=== PATIENT | male | born 1955 | race Two or more races ===

== ENCOUNTER 2019-12-16 09:35 | Outpatient (REF) | payer MEDICARE, SELFPAY ==
--- NOTE | 2019-12-16 09:44 | US_ITS ---
EXAMINATION: US ABDOMEN COMPLETE CLINICAL INFORMATION: Elevated LFTs. COMPARISON: CT abdomen and pelvis 05/02/2017, ultrasound abdomen 03/27/2007 TECHNIQUE: Real-time imaging of the abdominal viscera. FINDINGS: PANCREAS: Portions of the pancreatic head and neck and proximal body are visualized and appear normal in size and echogenicity. There is no pancreatic ductal distention. The remainder of the pancreas is obscured by bowel gas and not imaged. ABDOMINAL AORTA: The proximal, mid, and distal segments are normal in caliber. INFERIOR VENA CAVA: Visualized portions are normal. LIVER: The liver is normal in size and smooth in contour. Hepatic parenchymal echogenicity is borderline increased. There is no focal hepatic parenchymal lesion or intrahepatic ductal dilatation.. No intrahepatic biliary ductal dilatation. GALLBLADDER: Normal. The gallbladder is physiologically distended without evidence of stones, sludge, polyps, wall thickening or pericholecystic fluid. COMMON BILE DUCT: Normal in caliber measuring 0.5 cm in diameter. RIGHT KIDNEY: Right kidney measures 12.9 cm in length. There is no hydronephrosis or caliectasis. There is normal renal parenchymal thickness and echogenicity. There is a small cortical cyst between upper and and midpole measuring only 1.3 x 1.0 x 0.8 cm. There is specular echo lower pole 0.3 cm, possibly nonobstructing calculus. LEFT KIDNEY: Left kidney measures 12.4 cm in length. There is normal renal parenchymal thickness and echogenicity. No hydronephrosis or caliectasis. No calculi demonstrated. There is a small nonspecific hypoechoic exophytic lesion between mid and lower pole lateral side measuring approximately 1.3 x 1.0 x 0.8 cm. There is no associated increased or decreased through transmission of sound, calcification, or color flow on Doppler. SPLEEN: Normal. The spleen measures 9.8 cm in maximum dimension. FREE FLUID: None. US/US abdomen complete IMPRESSION: 1. Nonspecific hypoechoic exophytic lesion mid to lower pole left kidney 1.3 cm. This may be further characterized with MRI without and with gadolinium contrast, or alternatively CT without and with contrast. If not performed, then follow-up ultrasound in 6 months recommended for change. 2. No cholelithiasis or biliary ductal dilatation. 3. No focal hepatic parenchymal lesion. 4. Pancreatic body and tail obscured by bowel gas.
== END 2019-12-16 09:36 | disposition home or self-care (01) ==
LOC: HO.US 09:35
PROVIDERS: PCP Internal Medicine; Visit Provider Internal Medicine
DX: R79.89 Other specified abnormal findings of blood chemistry (principal)
CPT/HCPCS: 76700

== ENCOUNTER 2019-12-19 07:23 | Emergency (ER) | payer MEDICARE, SELFPAY ==
[2019-12-19 07:39] VITALS: BP 175/76; PULSE 89; RESP 16; TEMP 36.7; O2SAT 98; BMI 37.6
--- NOTE | 2019-12-19 07:59 | XR_ITS ---
EXAMINATION: XR CHEST CLINICAL INFORMATION: SOB with exertion. COMPARISON: Chest 08/14/2019 TECHNIQUE: Frontal view of the chest was obtained. FINDINGS: The lungs are well-expanded minimal platelike atelectasis left lung base. Heart size and pulmonary vascularity is normal. No gross bony abnormality seen. XR/XR chest 1V IMPRESSION: Minimal atelectasis or scarring left lung base. Rest of the lungs are clear. No major change from 08/14/2019.
--- NOTE | 2019-12-19 07:59 | ECG_ITS ---
Test Reason : BACKPAIN Blood Pressure : / mmHG Vent. Rate : 078 BPM Atrial Rate : 078 BPM P-R Int : 144 ms QRS Dur : 116 ms QT Int : 398 ms P-R-T Axes : 028 -17 071 degrees QTc Int : 453 ms Normal sinus rhythm with sinus arrhythmia Left axis deviation Intra-ventricular conduction delay Abnormal ECG When compared with ECG of 14-AUG-2019 18:32, No significant change was found Referred By: Gayatri Love Electronically Signed By:ORLANDO NAYAK MD
--- NOTE | 2019-12-19 08:01 | ED.GENADULT ---
HPI - General Adult General Chief complaint: Dizziness Stated complaint: back pain Time Seen by Provider: 12/19/19 07:52 Source: patient Mode of arrival: ambulatory Limitations: no limitations History of Present Illness HPI narrative: patient comes to the emergency room complaining of not feeling well. Patient states he is dizzy, he denies that the room is spinning or that he is spinning, no lightheadedness, patient describes this is noticed as not feeling well. Patient states he has noticed that over the last week or so, every time that he walks, he feels short of breath, has noticed mild bilateral ankle swelling which is is new for him. Patient denies chest pain palpitations or shortness of breath at rest. Patient complaining of chronic back pain, states he is known to have disc herniations in the lumbar area, patient is being treated in the Pain Clinic, given injections for his back. MD complaint: Dyspnea with exertion Related Data Previous Rx's Medication Instructions Recorded furosemide [Lasix] 40 mg PO DAILY #10 tab 12/19/19 Allergies Allergy/AdvReac Type Severity Reaction Status Date / Time adhesive tape [ADHESIVE TAPE] Allergy Unknown BLISTERS Unverified 10/31/19 17:20 ibuprofen [From MOTRIN] Allergy Unknown GI UPSET Unverified 10/31/19 17:20 Review of Systems Review of Systems: Constitutional : No Weight loss, No Fever, No Chills, No Night Sweats, No Fatigue, No Malaise ENT/Mouth : No Hearing loss, No Ear Pain, No Nasal Congestion, No Sinus Pain, No Hoarseness, No sore throat, No Rhinorrhea, No Swallowing Difficulty Eyes: No Eye Pain, No Swelling, No Redness, No Foreign Body, No Discharge, No Vision Changes Cardiovascular : No Chest Pain, No SOB, patient complaining of dyspnea on exertion, mild bilateral ankle swelling Respiratory : No Cough, No Sputum, No Wheezing, No Smoke Exposure, complaining of dyspnea on exertion Gastrointestinal : No Nausea, No Vomiting, No Diarrhea, No Constipation, No abdominal Pain, No Hematochezia, No Melena Genitourinary : no irregular bleeding, No Dysuria, No Urinary Frequency, No Hematuria, No Urinary Incontinence, No Urgency, No Flank Pain, No Urinary Flow Changes, No Hesitancy Musculoskeletal : complaining of chronic back pain in the lumbar area, No Myalgias, No Joint Swelling, complaining of diabetic neuropathy Skin : No Skin Lesions, No rash Neuro : No Weakness, No Numbness, No Paresthesias, No Loss of Consciousness, No Dizziness, No Headache Psych : No Anxiety/Panic, No Depression, No SI/HI/AH/VH, No Social Issues, Heme/Lymph: No Bruising, No Bleeding,No Lymphadenopathy Endocrine : No Polyuria, No Polydipsia, No Temperature Intolerance [facility] Past Medical History Medical History (Updated 12/19/19 @ 10:53 by Gayatri Love MD) Arthritis Asthma Diabetes HTN (hypertension) Hyperlipidemia Low back pain Neuropathy Social History Social History Alcohol intake: never Smoking Status: Never smoker Use of substances other than those prescribed or required for medical reasons: No Advance Directives: No Advance Directives Information Provided: No Physical Exam Vital Signs: Vital Signs: Vital Signs Temp Pulse Resp BP Pulse Ox 12/19/19 07:39 98.1 F 89 16 175/76 H 98 Body Mass Index 37.6 Appearance: Alert. Oriented X3. No acute distress. Eyes: Pupils equal, round and reactive to light. ENT: Pharynx normal. Neck: Normal inspection. Neck supple. No lymph nodes noted. No crepitus CVS: Normal heart rate and rhythm. Pulses normal. Normal S1 and S2 Respiratory: No respiratory distress. bilateral base crackles, no wheezing Abdomen: Soft and nontender. No rigidity. No distention. good BS x4 Skin: Skin warm and dry. Normal skin color. Normal skin turgor. Back: pain to palpation in the lumbar area, patient has significant pain sitting up (chronic) Extremities: +1 pitting edema bilaterally in the ankles No lower extremity edema. No Lacerations. No Rash Neuro: Oriented X 3. No motor deficit. No sensory deficit. Moving all extermities. No slurred speech. Course Course Course Narrative: I discussed the labs and imaging with the patient, patient does not seem to have acute congestive heart failure. Patient does have mild lower extremity edema, we will go ahead and start him on a small dose of Lasix, patient instructed to follow-up with his primary care physician as he may need labs to check electrolytes. Patient agrees with plan, he will follow-up with his primary care physician and with the pain clinic. Patient's troponin is 6.8, chronic for the patient. Patient's back pain and lower extremity pain chronic due to lumbar disc herniation and neuropathy. Medical Decision Making Lab Data Result diagrams: 12/19/19 08:10 12/19/19 08:10 Labs: Lab Results 12/19/19 12/19/19 12/19/19 Range/Units 08:10 08:10 08:10 WBC 7.9 (4.8-10.8) X10*3/uL RBC 4.66 (4.60-5.80) X10*6/uL Hgb 13.2 L (14.0-18.0) g/dl Hct 40.9 L (42-52) % MCV 87.8 (80-98) fL MCH 28.3 (27.0-33.0) pg MCHC 32.3 (31.0-36.0) g/dl RDW 13.2 (11.0-16.0) % Plt Count 169 (160-400) X10*3/uL MPV 10.5 (9.4-12.4) fL Immature Gran % (Auto) 0.1 (0.0-0.4) % Neut % (Auto) 69.5 (45-73) % Lymph % (Auto) 19.5 L (20-40) % [place] % (Auto) 6.9 (2-11) % Eos % (Auto) 3.7 (0-4) % Baso % (Auto) 0.3 (0-2) % Lymph # (Auto) 1.5 (1.2-4.9) X10*3/uL [place] # (Auto) 0.5 (0.1-1.2) X10*3/uL Eos # (Auto) 0.3 (0.0-0.4) X10*3/uL Baso # (Auto) 0.0 (0.0-0.2) X10*3/uL Abs Immat Gran (auto) 0.01 (0.00-0.03) X10*3/uL Absolute Neuts (auto) 5.5 (2.0-8.3) X10*3/uL Absolute Nucleated RBC 0.000 (0.0-0.012) X10*3/uL Nucleated RBC % (auto) 0.0 (0.0-0.2) /100WBC Sodium 136 (135-145) mmol/L Potassium 4.4 (3.3-5.1) mmol/l Chloride 102 (96-108) mmol/L Carbon Dioxide 28 (22-29) mmol/L Anion Gap 10 L (12-20) BUN 17 H (9-16) mg/dL Creatinine 0.87 (0.5-1.4) mg/dL Estim Creat Clear Calc 111.2 Estimated GFR > 60 Random Glucose 288 H (60-115) mg/dL Calcium 7.6 L (8.4-10.2) mg/dL Total Bilirubin 0.2 (0.0-1.0) mg/dL Direct Bilirubin 0.2 (0.0-0.5) mg/dL AST 38 H (5-37) U/L ALT 54 H (0-40) U/L Alkaline Phosphatase 66 (39-117) U/L Troponin I High Sens 6.8 (<3.5-35.0) ng/L B-Natriuretic Peptide 22 (<100) pg/mL Total Protein 6.3 L (6.5-8.0) g/dL Albumin 3.6 (3.5-5.0) g/dL Imaging Data Chest x-ray: Radiologist's impression: The lungs are well-expanded minimal platelike atelectasis left lung base. Heart size and pulmonary vascularity is normal. No gross bony abnormality seen ECG Data Attestation: I personally reviewed and interpreted this ECG as follows: ( sinus rhythm, heart rate 78, no ST segment depressions or elevations, no T-wave inversions.) Discharge Plan Discharge Clinical Impression: Bilateral edema of lower extremity, Neuropathy Chronic lumbar pain Qualifiers: Back pain laterality: unspecified Sciatica presence: with sciatica Sciatica laterality: sciatica laterality unspecified Qualified Code(s): M54.40 - Lumbago with sciatica, unspecified side Patient Disposition: Home, Self-Care Instructions: Leg Edema (ED) Additional Instructions: please follow-up with her primary care physician, you will likely need labs after your tone taking your course of Lasix. If you have any worsening symptoms, please call 911 or return to the emergency room Prescriptions: New furosemide [Lasix] 40 mg tablet 40 mg PO DAILY Qty: 10 RF: 0
[2019-12-19 08:14] LABS: MANUAL DIFF FLAG NO
[2019-12-19 08:16] LABS: Basophils Percent Auto 0.3 % (0-2); Eosinophils Absolute Auto 0.3 X10*3/uL (0.0-0.4); Eosinophils Percent Auto 3.7 % (0-4); Hematocrit 40.9 % (42-52); Hemoglobin 13.2 g/dl (14.0-18.0); Imm Gran Abs Auto 0.01 X10*3/uL (0.00-0.03); Imm Gran Pct Auto 0.1 % (0.0-0.4); Lymphocytes Absolute Auto 1.5 X10*3/uL (1.2-4.9); Lymphocytes Percent Auto 19.5 % (20-40); Mean Corpuscular HGB Conc 32.3 g/dl (31.0-36.0); Mean Corpuscular Hemoglobin 28.3 pg (27.0-33.0); Mean Corpuscular Volume 87.8 fL (80-98); Mean Platelet Volume 10.5 fL (9.4-12.4); Monocytes Absolute Auto 0.5 X10*3/uL (0.1-1.2); Monocytes Percent Auto 6.9 % (2-11); Neutrophils Absolute Auto 5.5 X10*3/uL (2.0-8.3); Neutrophils Percent Auto 69.5 % (45-73); Platelet Count 169 X10*3/uL (160-400); Red Blood Count 4.66 X10*6/uL (4.60-5.80); Red Cell Distribution Width 13.2 % (11.0-16.0); White Blood Count 7.9 X10*3/uL (4.8-10.8)
[2019-12-19 08:49] LABS: Alanine Aminotransferase 54 U/L (0-40); Albumin Level 3.6 g/dL (3.5-5.0); Alkaline Phosphatase 66 U/L (39-117); Anion Gap 10 (12-20); Aspartate Amino Transferase 38 U/L (5-37); Bilirubin Direct 0.2 mg/dL (0.0-0.5); Bilirubin Total 0.2 mg/dL (0.0-1.0); Blood Urea Nitrogen 17 mg/dL (9-16); Calcium 7.6 mg/dL (8.4-10.2); Carbon Dioxide 28 mmol/L (22-29); Chloride 102 mmol/L (96-108); Creatinine Clr Calc Pharmacy 111.2; Estimated Glomerular Filt Rate > 60; Glucose Random 288 mg/dL (60-115); Potassium 4.4 mmol/l (3.3-5.1); Sodium 136 mmol/L (135-145); Total Protein 6.3 g/dL (6.5-8.0)
[2019-12-19 08:56] LABS: B Type Natriuretic Peptide 22 pg/mL (<100)
--- NOTE | 2019-12-19 09:23 | PC.NURSE ---
PER PROVIDER, PT IS NOW COMPLAINING OF CHEST PAIN AND SOB. PT AIRWAY PATENT, SATTING 98% ON RA, NAD. EKG COMPLETED PRIOR. TROPONIN LAB ADDED ON. WCTM.
[2019-12-19 10:12] LABS: Troponin-I High Sensitivity 6.8 ng/L (<3.5-35.0)
[2019-12-19] MEDS: oxyCODONE HCl Immed Release 5 MG TABLET PO (10:57)
== END 2019-12-19 11:07 | disposition home or self-care (01) ==
PROVIDERS: Emergency Provider Emergency Medicine; PCP Student in an Organized Health Care Education/Training Program
DX: R60.0 Localized edema (principal); R42 Dizziness and giddiness; M54.40 Lumbago with sciatica, unspecified side; R06.00 Dyspnea, unspecified; Z79.899 Other long term (current) drug therapy
CPT/HCPCS: 36415; 71045; 80048; 80076; 83880; 84484; 85025; 93005; 99283; 99284

== ENCOUNTER 2022-09-21 13:13 | Emergency (ER) | payer OTHER, MEDICARE, SELFPAY ==
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
[2022-09-21 13:46] VITALS: BP 158/59; PULSE 88; RESP 16; TEMP 36.6; O2SAT 95; BMI 36.3
== END 2022-09-21 13:59 | disposition home or self-care (01) ==
LOC: HO.ED 13:57
PROVIDERS: Emergency Provider Student in an Organized Health Care Education/Training Program; PCP Internal Medicine
DX: S13.4XXA Sprain of ligaments of cervical spine, initial encounter (principal); V43.52XA Car driver injured in collision with other type car in traffic accident, initial encounter; Y93.9 Activity, unspecified; Y92.410 Unspecified street and highway as the place of occurrence of the external cause; Y99.9 Unspecified external cause status; Z79.899 Other long term (current) drug therapy
CPT/HCPCS: 99282; 99283

== ENCOUNTER 2023-01-11 | Outpatient (REF) | payer MEDICARE, SELFPAY | END 2023-01-11 00:01 | disposition home or self-care (01) | LOC: HO.HHCLNP | PROVIDERS: Visit Provider Emergency Medicine | DX: J06.9 Acute upper respiratory infection, unspecified (principal) | CPT/HCPCS: 87070 ==

== ENCOUNTER 2023-04-07 18:24 | Outpatient (REF) | payer MEDICARE, SELFPAY ==
[2023-04-12 08:30] LABS: Nordiazepam, GCMS Urine NEGATIVE; Oxazepam, GCMS Urine NEGATIVE
[2023-04-12 08:31] LABS: Alphahydroxymidazolam,GCMS Ur NEGATIVE; Alphahydroxytriazolam, GCMS Ur NEGATIVE; Alprazolam, GCMS Urine NEGATIVE; Aminoclonazepam, GCMS Urine NEGATIVE; Flurazepam Metabolite,GCMS Ur NEGATIVE; Lorazepam GCMS Urine NEGATIVE; Temazepam, GCMS Urine NEGATIVE
== END 2023-04-07 18:25 | disposition home or self-care (01) ==
LOC: HO.HHCLNP 18:24
PROVIDERS: Visit Provider Internal Medicine
DX: M54.41 Lumbago with sciatica, right side (principal); M54.42 Lumbago with sciatica, left side; G89.29 Other chronic pain
CPT/HCPCS: 80346

== ENCOUNTER 2023-05-25 08:18 | Outpatient (REF) | payer MEDICARE, SELFPAY ==
[2023-05-25 14:59] LABS: Alanine Aminotransferase 50 U/L (0-40); Albumin Level 3.8 g/dL (3.5-5.0); Alkaline Phosphatase 60 U/L (39-117); Anion Gap 15 (12-20); Aspartate Amino Transferase 39 U/L (5-37); Bilirubin Total 0.3 mg/dL (0.0-1.0); Blood Urea Nitrogen 30 mg/dL (9-16); Calcium 9.6 mg/dL (8.4-10.2); Carbon Dioxide 29 mmol/L (22-29); Chloride 101 mmol/L (96-108); Cholesterol 114 mg/dL (<200); Estimated Glomerular Filt Rate > 60; Glucose Random 103 mg/dL (60-115); HDL Cholesterol 35 mg/dL (>40); LDL Cholesterol Calculated 24 mg/dL (<100); Potassium 4.5 mmol/L (3.3-5.1); Sodium 140 mmol/L (135-145); Total Protein 7.6 g/dL (6.5-8.0); Triglycerides 279 mg/dL (<150)
== END 2023-05-25 08:19 | disposition home or self-care (01) ==
LOC: HO.CHCLDS 08:18
PROVIDERS: Visit Provider Internal Medicine
DX: E11.42 Type 2 diabetes mellitus with diabetic polyneuropathy (principal)
CPT/HCPCS: 36415; 80053; 80061

== ENCOUNTER 2023-06-09 08:25 | Outpatient (REF) | payer MEDICARE, SELFPAY ==
[2023-06-09 15:53] LABS: Creatinine Urine 71.89 mg/dL; Microalbum/Creatinine Ratio Ur 111.2 ug/mg cr (<30)
== END 2023-06-09 08:26 | disposition home or self-care (01) ==
LOC: HO.CHCLDS 08:25
PROVIDERS: Visit Provider Internal Medicine
DX: E11.42 Type 2 diabetes mellitus with diabetic polyneuropathy (principal)
CPT/HCPCS: 82043; 82570

== ENCOUNTER 2023-11-10 08:54 | Outpatient (REF) | payer MEDICARE, SELFPAY ==
[2023-11-10 14:48] LABS: Estimated Average Glucose 134 mg/dL; Hemoglobin A1c % 6.3 % (<6.0)
== END 2023-11-10 08:55 | disposition home or self-care (01) ==
LOC: HO.CHCLDS 08:54
PROVIDERS: Visit Provider Internal Medicine
DX: E11.9 Type 2 diabetes mellitus without complications (principal); Z79.4 Long term (current) use of insulin
CPT/HCPCS: 36415; 83036

== ENCOUNTER 2024-03-29 10:02 | Outpatient (REF) | payer MEDICARE, SELFPAY ==
--- OUTSIDE RECORDS SUMMARY | 2024-03-29 10:46 | XMS_ITS | Encounter Summary ---
Author Organization [employer] Address [address] [facility] [address] [place] [address] Care Team Providers Care Door Closer Mechanic Name Role Phone Harsh Young MD Primary Care Prov ider Eduin Shaw Unavailable Unavailable Reason for Visit * Reason Onset Date Comments Med Refill 09/11/2023 Encounter Details Date Type Department Care Team (Late st Contact Info) Description 09/11/2023 Telephone [facility] MED[facility]INE [address] [place] [address] Harsh Young MD [address] [place] [address] Med Refill Social History Tobacco Use Types Packs/Day Years Used Date Smoking Tobacco: Former Cigarettes 0.5 10 2 000 - 2010 Passive Smoke Exposure: Never Smokeless Tobacco: Never Alcohol Use Standard Drinks/Week Comments Yes 4 (1 standard drink = 0.6 oz pur e alcohol) Depression Answer Date Recorded Patient Health Questionnaire-9 Score 5 07/06/2023 Patient Health Questionnaire-9 Score 5 07/06/2023 Last PHQ-9: Questionnaire Data Not on file 0 07/06/2023 Housing Stability Answer Date Recorded What is your housing situation today? I have kristy [place] 12/11/[address] you li ve. Do you have problems with any of the following? None of the above 12/11/2022 Food Insecurity Answer Date Recorded Within the past 12 months, y ou worried that your food would run out before you got money to buy more: Never True 12/11/2022 Within the past 12 months,th e food you bought just didn't last and you didn't have enough money to get more: Never True Transportation Answer Date Recorded In the past 12 months, has l ack of transportation kept you from medical appts, meetings, work or from getting things needed for daily living? No 12/11/2022 Utilities Answer Date Recorded In the past 12 months, has t he electric, gas, oil or water company threatened to shut off services in your home? No 12/11/2022 Depression Answer Date Recorded Patient Health Questionnaire-2 Score 1 07/06/2023 Sex and Gender Information Value Date Recorded Sex Assigned at Male 12/13/2021 10:18 AM EDT Legal Sex Male 10:18 AM EDT Gender Identity Male 12/13/2021 10:18 AM EDT Sexual Orientation Straight 12/13/2021 10 :18 AM EDT documented as of this encounter Miscellaneous Notes * Telephone Encounter - aDmián Duenas - 09/11/2023 10:32 AM EDT TC from pt requesting medication refill. Medications needing refill : oxyCODONE-acetaminophen (Percocet) 5-325 MG tablet To be sent to: [facility]ARMACY #[id number] [place] - [address] [place] [address] documented in this encounter Plan of Treatment Upcoming Encounters Date Type Department Care Team ([facility] st Contact Info) Description 04/03/2024 11:00 AM EST Clinical Support [facility] MED & PEDS [address] [place] [address] Missy Michelle, LEONARDO [address] [place] [address] documented as of this encounter Visit Diagnoses Not on filedocumented in this encounter Additional Health Concerns Assessment Noted Time PHQ-9 Depression Total Score: 5 07/06/19 24 2:43 PM EDT documented as of this encounter Care Teams Door Closer Mechanic Relationship Specialty Start Date End Date Harsh Young MD [address] [place] [address] PCP - General Internal Medicine 10/08/19 Eduin Shaw FNP [address] [place] [phone] Nurse Practitioner Family Medicine 01/03/23 documented as of this encounter
--- OUTSIDE RECORDS SUMMARY | 2024-03-29 10:46 | XMS_ITS | Encounter Summary ---
Author Organization [employer] Address [address] [facility] [address] [place] [address] Care Team Providers Care Cell Phone Repair Technician Name Role Phone Harsh Young MD Primary Care Prov ider Eduin Shaw Unavailable Unavailable Reason for Visit * Reason Onset Date Comments Med Refill 10/17/2023 Encounter Details Date Type Department Care Team (Late st Contact Info) Description 10/17/[address] [facility] MEDICINE [address] [place] [address] Harsh Young MD [address] [place] [address] Med Refill Social History Tobacco Use Types [...] encounter Miscellaneous Notes * Telephone Encounter - Damián Duenas - 10/17/2023 11:31 AM EDT TC from pt requesting medication refill. Medications needing refill : oxyCODONE-acetaminophen (Percocet) 5-325 MG tablet To be sent to: [facility]/pharmacy #[id number] [place] - [address] [place] [address] documented in this encounter Plan of Treatment Upcoming Encounters Date Type Department Care Team ([facility] st Contact Info) Description 04/03/2024 11:00 AM EST Clinical Support [facility] MED & PEDS [address] [place] [address] Missy Michelle, LEONARDO [address] [place] [address] documented as of this encounter Visit Diagnoses Not on filedocumented in this encounter Additional Health Concerns Assessment Noted Time PHQ-9 Depression Total Score: 5 07/06/19 24 2:43 PM EDT documented as of this encounter Care Teams Cell Phone Repair Technician Relationship Specialty Start Date End Date Harsh Young MD [address] [place] [address] PCP - General Internal Medicine 10/08/19 Eduin Shaw FNP [address] [place] [id number] Nurse Practitioner Family Medicine 01/03/23 documented as of this encounter
--- OUTSIDE RECORDS SUMMARY | 2024-03-29 10:46 | XMS_ITS | Clinical Summary ---
Author Organization [facility] Address [address] [place] [address] Phone Care Team Providers Care Rush Seater Name Role Phone Harsh Young Primary Care Provide r Allergies No known active allergies Medications dexAMETHasone (DECADRON) 4 mg tablet Take 1 tablet (4 mg total) by mouth 2 (two) times a day for 4 days. 8 each 03/26/2024 Active Encounters Date Type Department Care Team Description 03/26/2024 10:44 AM EST - 03/26/2024 1:14 PM EST Emergency [facility] Emergency [address] [place] [address] Acute bronchitis, unspecified organism (Primary Dx) Discharge Disposition: Home or Self Care 03/26/2024 Community Care Management [facility] [address] [place] [address] Britney Landin from Last 3 Months Medical History Medical History Date Comments Diabetes mellitus type 2, co ntrolled, with complications (CMS/HCC) DX:Diabetes mellitus type 2, controlled, with complications (HCC) Essential hypertension DX:Essent ial hypertension Hyperlipidemia DX:Hyperlipidemi a Family history of cardiovascular disease DX:Family history of cardiovascular disease Bilateral leg edema DX:Bilateral leg edema Chronic lower back pain DX:Chron ic lower back pain Social History Tobacco Use Types Packs/Day Years Used Date Smoking Tobacco: Former Smokeless Tobacco: Never Housing Instability Answer Date Recorde d Are you worried that in the next 2 months you may not have stable housing? No 03/26/2024 Food Access & Nutrition Answer Date Rec orded Do you have access to a vari ety of food including fruits and vegetables? Yes 03/26/2024 Access to Healthcare Answer Date Record ed Within the last 3 months, ho w many times did you visit the emergency department for your medical care? 1 03/26/2024 Health Literacy Answer Date Recorded How often do you need to hav e someone help you when you read instructions, pamphlets, or other written material from your doctor or pharmacy? Never 03/26/2024 Caregiver: How often do you need to have someone help you when you read instructions, pamphlets, or other written material from your doctor or pharmacy? Not on file 03/26/2024 Financial Risk Answer Date Recorded How hard is it for you to pa y for the very basics like food, housing, medical care, and air conditioning / heating? Not very hard 03/26/2024 Transportation Answer Date Recorded Has the lack of transportati on kept you from meetings, work, or from getting things needed for daily living? No Has the lack of transportati on kept you from medical appointments or from getting medications? No 03/26/2024 Social Isolation Answer Date Recorded How often do you feel lonely or isolated from th ose around you? Never 03/26/2024 Food Risk Answer Date Recorded Within the past 12 months we worried whether our food would run out before we got money to buy more. Never true 03/26/2024 Within the past 12 months th e food we bought just didn't last and we didn't have money to get more. Never true 03/26/2024 Dependent Care Answer Date Recorded Do you need help finding or paying for care for your loved ones. For example, child care worker or elderly care for an older adult? No 03/26/2024 Education Answer Date Recorded Do you think completing more education or training, like finishing a GED, going to college, or learning a trade, would be helpful for you? No 03/26/2024 Employment and Income Answer Date Recor ded During the last four weeks, have you been actively looking for work? No 03/26/2024 Living Situation Answer Date Recorded What is your living situation? 0 03/26/2024 Sex and Gender Information Value Date Recorded Sex Assigned at Male 03/26/2024 11:24 AM EST Legal Sex Male 10:06 AM EST Gender Identity Male 03/26/2024 11:24 AM EST Sexual Orientation Straight 03/26/2024 11 :24 AM EST Obstetrics History Last Filed Vital Signs Vital Sign Reading Time Taken Comments Blood Pressure 143/57 03/26/2024 1:05 PM EST Pulse 68 03/26/2024 11:00 AM EST Temperature 36.5 ??C (97.7 ??F) 03/26/2024 1:05 PM ES T Respiratory Rate 20 03/26/2024 1:05 PM EST Oxygen Saturation 95% 03/26/2024 1:05 PM EST Inhaled Oxygen Concentration - - Weight 113 kg (250 lb) 03/26/2024 10:11 AM EST Height 180.3 cm (5' 11 ) 03/26/2024 10:11 AM EST Body Mass Index 34.87 03/26/2024 10:11 AM EST Plan of Treatment Health Maintenance Due Date Last Done Comments Diabetes: Annual GFR (Glomerular Filtration Rate) 1955 Diabetes: Annual Foot Exam 10/04/1963 Diabetes: Annual Retina Eye Exam 10/04/1963 Zoster Vaccines (1 of 2) 10/04/2003 RSV Immunization Patients 60+ Years Old (1 - Risk 60-74 years 1-dose series) 2013 Abdominal Aortic Aneurysm (AAA) Screen 01/11/2022 Falls Risk Assessment 01/11/2022 COVID-19 Vaccine ( season) 2023 01/20/2021, 05/05/2020, 04/07/2020 Influenza Vaccine (#1) 2023 3, 12/01/2020, 11/13/2019, Additional history exists Diabetes: Annual Urine Albumin-Creatinine Ratio (uACR) 03/26/2024 Hypertension/CHF/CAD Annual BMP Blood Test 03/26/2024 Diabetes: Blood Sugar Control Test (HGBA1C) 05/09/2024 11/10/2023 Depression Screening 07/05/2024 07/06/2023 Social Influencers of Health Screening 03/26/2025 03/26/2024 DTaP,Tdap,and Td Vaccines (2 - Td or Tdap) 11/01/2025 11/02/2015 Colorectal Cancer Screening: FIT-DNA (Cologuard) 11/12/2026 11/13/2023 Cholesterol Screening (Lipid Panel) 05/24/2028 05/25/2023 Hepatitis C Screening Completed 05/17/2022 Pneumococcal Vaccine: 50+ Years Completed 01/26/2023, 11/13/2018 HIB Vaccines Aged Out No longer eligi ble based on patient's age to complete this topic HPV Vaccines Aged Out No longer eligi ble based on patient's age to complete this topic Hepatitis A Vaccines Aged Out No long er eligible based on patient's age to complete this topic Hepatitis B Vaccines Aged Out No long er eligible based on patient's age to complete this topic IPV Vaccines Aged Out No longer eligi ble based on patient's age to complete this topic MMR Vaccines Aged Out No longer eligi ble based on patient's age to complete this topic Meningococcal ACWY Vaccine Aged Out N o longer eligible based on patient's age to complete this topic Meningococcal B Vacine Aged Out No lo nger eligible based on patient's age to complete this topic RSV Immunization Patients Under 20 months Aged Out No longer eligible based on patient's age to complete this topic Varicella Vaccines Aged Out No longer eligible based on patient's age to complete this topic Procedures Procedure Name Priority Date/Time Associated Diagnosis Comments XR CHEST 2 VIEWS STAT 03/26/2024 10:3 0 AM EST [id number], RSV, FLU A AND B QUALITATIVE RT-PCR, INTERNAL LAB STAT 03/26/2024 10:15 AM EST from Last 3 Months Results * XR Chest 2 Views (03/26/2024 10:30 AM EST) Anatomical Region Laterality Modality Body Radiographic Kell ging 03/26/2024 10:3 5 AM EST Impressions 03/26/2024 10:41 AM EST FINDINGS/IMPRESSION: Left basilar atelectasis/scarring, unchanged. ??No pneumonia or pulmonary edema. ??No pleural effusion or pneumothorax. ??Cardiac silhouette and bones are within normal limits. -------- FINAL REPORT -------- Dictated By: RADHA COX Dictated Date: 03/26/2024 10:35 ET Assigned Physician: RADHA COX Reviewed and Electronically Signed By: RADHA COX Signed Date: 03/26/2024 10:41 ET Workstation ID: [id number] Transcribed By: Self Edit Transcribed Date: 03/26/2024 10:35 ET Narrative 03/26/2024 10:41 AM EST XR CHEST 2 VIEWS INDICATION: ??Shortness of breath TECHNIQUE: XR CHEST 2 VIEWS COMPARISON: 05/03/2023 Procedure Note Radha Cox MD - 03/26/2024 XR CHEST 2 VIEWS INDICATION: Shortness of breath TECHNIQUE: XR CHEST 2 VIEWS COMPARISON: 05/03/2023 IMPRESSION: FINDINGS/IMPRESSION: Left basilar atelectasis/scarring, unchanged. Nopneumonia or pulmonary edema. No pleural effusion or pneumothorax.Cardiac silhouette and bones are within normal limits. -------- FINAL REPORT -------- Dictated By: RADHA COX Dictated Date: 03/26/2024 10:35 ET Assigned Physician: RADHA COX Reviewed and Electronically Signed By: RADHA COX Signed Date: 03/26/2024 10:41 ET Workstation ID: [id number] Transcribed By: Self Edit Transcribed Date: 03/26/2024 10:35 ET Ganesh Fernandez DO IMG XR PROCEDURES Final Res ult * (ABNORMAL) [id number], RSV, Influenza A and B qualitative RT-PCR (03/26/2024 10:15 AM EST) Influenza A PCR Detected(A) Not Detected LAB MICROBIOLOGY METHOD 03/26/2024 11:48 AM EST [facility] Influenza B PCR Not Detected Not Detected LAB MICROBIOLOGY METHOD 03/26/2024 11:48 AM [facility] RSV PCR Not Detected Not Detected LAB MICROBIOLOGY METHOD 03/26/2024 11:48 AM [facility] SARS COV-2 Not Detected Not Detected LAB MICROBIOLOGY METHOD 03/26/2024 11:48 AM [facility] Swab Structure of right anterior naris / Unknown Non-blood Collection / Unknown 03/26/2024 10:15 AM EST 03/26/2024 10:34 AM EST Narrative [facility] - 03/26/2024 11:48 AM EST Disclaimer: ??Testing was performed using the [employer] GeneXpert Xpress SARS-CoV-2 _Flu_RSV PLUS PCR assay. ??The manner in which this information is used to guide patient care is the responsibility of the healthcare provider. ??Results should be correlated with the clinical history, epidemiological data, and other data available to the clinician evaluating the patient. ??Negative results do not preclude infection. ??This test has been authorized by the FDA under an Emergency Use Authorization (EUA). ??This test is only authorized for the duration of time the declaration that circumstances exist justifying the authorization of the emergency use of in vitro diagnostic tests for detection of SARS-CoV-2 virus and/or diagnosis of COVID-19 infection under section 564 (b) (1) of the Act, 21 U.S.C 360bbb-3 (b) (1), unless the authorization is terminated or revoked sooner. ?? Reference Range: Not Detected Fact sheet for Healthcare providers can be found at https://www.fda.gov/media/789226/download. ?? Fact sheet for Healthcare patients can be found at https://www.fda.gov/media/925324/download. Ganesh Fernandez DO LAB MICROBIOLOGY - GENERAL ORDERABLES Final Result [facility] ([facility]) [facility] [address] [place] [address], from Last 3 Months Additional Health Concerns Infection Onset Date Last Indicated Influenza 03/26/2024 03/26/2024 Insurance [facility] Member Subscriber Plan / Payer (Ef fective 2024-Present) Name:Juvenal Hewitt Relation to Subscriber:Spouse Name:JUVENAL HEWITT Date of :1953 (Home) Address: [address] [place] [address] Payer ID:[id number] Group ID:[id number] Type:Not on file Address: [facility] [place] [phone] Advance Directives Documents on File Type Date Recorded Patient Eligibility Specialist Expl anation Health Care Decision (hx) 07/03/2020 AD KAY DIRECTIVE Health Care Decision (hx) 07/03/2020 AD KAY DIRECTIVE Health Care Decision (hx) 07/03/2020 AD KAY DIRECTIVE Health Care Decision (hx) 07/03/2020 AD KAY DIRECTIVE Health Care Decision (hx) 07/03/2020 AD KAY DIRECTIVE Health Care Decision (hx) 07/03/2020 AD KAY DIRECTIVE Health Care Decision (hx) 07/03/2020 AD KAY DIRECTIVE Health Care Decision (hx) 07/03/2020 AD KAY DIRECTIVE Care Teams Rush Seater Relationship Specialty Start Date End Date Harsh Young NPMerlyn: [phone] [address] [place] [address] PCP - General Internal Medicine 01/23/20
--- OUTSIDE RECORDS SUMMARY | 2024-03-29 10:46 | XMS_ITS | Encounter Summary ---
Author Organization [employer] Address [address] [facility] 7[address] [place] [address] Care Team Providers Care Shirrer Name Role Phone Harsh Young MD Primary Care Prov ider Eduin Shaw Unavailable Unavailable Reason for Visit * Reason Onset Date Comments Med Refill 09/04/2023 Encounter Details Date Type Department Care Team (Late st Contact Info) Description 09/04/2023 Telephone [facility] MEDICINE [address] [place] [address] Harsh Young MD [address] [place] [address] Med Refill Social History Tobacco Use Types [...] encounter Miscellaneous Notes * Telephone Encounter - Berto Mendoza - 09/04/2023 10:28 AM EDT TC from pt requesting medication refill. Medications needing refill: pregabalin (Lyrica) 100 MG capsule [facility]: [id number] [address] documented in this encounter Plan of Treatment Upcoming Encounters Date Type Department Care Team ([facility] Contact Info) Description 04/03/2024 11:00 AM EST Clinical Support [facility] MED & PEDS [address] [place] [address] Missy Michelle RN [address] [place] [address] documented as of this encounter Visit Diagnoses Not on filedocumented in this encounter Additional Health Concerns Assessment Noted Time PHQ-9 Depression Total Score: 5 07/06/19 24 2:43 PM EDT documented as of this encounter Care Teams Shirrer Relationship Specialty Start Date End Date Harsh Young MD [address] [place] [address] PCP - General Internal Medicine 10/08/19 Eduin Shaw FNP [address] [place] [address] Nurse Practitioner Family Medicine 01/03/23 documented as of this encounter
--- OUTSIDE RECORDS SUMMARY | 2024-03-29 10:46 | XMS_ITS | Encounter Summary ---
Author Organization [employer] Address [address] [facility] 7t [place] [address] Care Team Providers Care Neonatal Surgeon Name Role Phone Harsh Young MD Primary Care Prov ider Eduin Shaw Unavailable Unavailable Encounter Details Date Type Department Care Team (Late st Contact Info) Description 2023 Orders Only [facility] [address] [place] [address] Provider, MD Enio Social History Tobacco Use Types Packs/Day Years [...] AM EDT documented as of this encounter Plan of Treatment Upcoming Encounters Date Type Department Care Team (Late st Contact Info) Description 04/03/2024 11:00 AM EST Clinical Support [facility] MED & PEDS [address] [place] [address] Missy Michelle RN [address] [place] [address] documented as of this encounter Procedures Procedure Name Priority Date/Time Associated Diagnosis Comments CULTURE, DEEP WOUND Routine 08/30/2023 11:55 AM EDT documented in this encounter Results * Culture, Deep Wound (08/30/2023 11:55 AM EDT) Historical Provider LAB MICROBIOLOGY - GENERA L ORDERABLES Final Result documented in this encounter Visit Diagnoses Not on filedocumented in this encounter Additional Health Concerns Assessment Noted Time PHQ-9 Depression Total Score: 5 07/06/19 24 2:43 PM EDT documented as of this encounter Care Teams Neonatal Surgeon Relationship Specialty Start Date End Date Harsh Young MD [address] [place] [address] PCP - General Internal Medicine 10/08/19 Eduin Shaw FNP [address] [place] [address] Nurse Practitioner Family Medicine 01/03/23 documented as of this encounter
--- OUTSIDE RECORDS SUMMARY | 2024-03-29 10:47 | XMS_ITS | Encounter Summary ---
Author Organization [employer] Address [address] [facility] 7t [place] [address] Care Team Providers Care Record Label Intern Name Role Phone Harsh Young MD Primary Care Prov ider Eduin Shaw Unavailable Unavailable Reason for Visit * Reason Onset Date Comments ER Follow-up 03/29/2024 Encounter Details Date Type Department Care Team ([facility] st Contact Info) Description 03/29/2024 Telephone [facility] MED & PEDS [address] [place], [place] [phone] Harsh Young MD [address] [place] [address] ER Follow-up Social History Tobacco Use Types Packs/Day Years [...] encounter Miscellaneous Notes * Telephone Encounter - Arelis Irene - 03/29/2024 9:24 AM EST Pt seen at [facility] Er 03/26/24 for cough , hard to breath. Pt requesting a f/u chest xray done per pt documented in this encounter Plan of Treatment Upcoming Encounters Date Type Department Care Team (Late st Contact Info) Description 04/03/2024 11:00 AM EST Clinical Support [facility] MED & PEDS [address] [place] [address] Missy Michelle RN [address] [place] [address] documented as of this encounter Visit Diagnoses Not on filedocumented in this encounter Additional Health Concerns Assessment Noted Time PHQ-9 Depression Total Score: 5 07/06/19 24 2:43 PM EDT documented as of this encounter Care Teams Record Label Intern Relationship Specialty Start Date End Date Harsh Young MD [address] [place] [address] PCP - General Internal Medicine 10/08/19 Eduin Shaw FNP [address] [place] [address] Nurse Practitioner Family Medicine 01/03/23 documented as of this encounter
--- OUTSIDE RECORDS SUMMARY | 2024-03-29 10:47 | XMS_ITS | Encounter Summary ---
Author Organization [employer] Address [address] [facility] 7t [place] [address] Care Team Providers Care Executive Coordinator Name Role Phone Harsh Young MD Primary Care Prov ider Eduin Shaw Unavailable Unavailable Encounter Details Date Type Department Care Team (Late st Contact Info) Description 03/26/2024 Orders Only [facility] [address] [place] [address] Provider, MD Enio Social History Tobacco Use [...] Upcoming Encounters Date Type Department Care Team ([facility] st Contact Info) Description 04/03/2024 11:00 AM EST Clinical Support [facility] MED & PEDS [address] [place] [address] Missy Michelle RN [address] [place] [address] documented as of this encounter Procedures Procedure Name Priority Date/Time Associated Diagnosis Comments XR CHEST 2 VIEWS Routine 03/26/2024 11:14 AM EST documented in this encounter Results * XR Chest 2 Views (03/26/2024 11:14 AM EST) Anatomical Region Laterality Modality Chest Radiographic Kell ging us Historical Provider MD KEARNEY XR PROCEDURES Final R esult documented in this encounter Visit Diagnoses Not on filedocumented in this encounter Additional Health Concerns Assessment Noted Time PHQ-9 Depression Total Score: 5 07/06/19 24 2:43 PM EDT documented as of this encounter Care Teams Executive Coordinator Relationship Specialty Start Date End Date Harsh Young MD [address] [place] [address] PCP - General Internal Medicine 10/08/19 Eduin Shaw FNP [address] [place] [address] Nurse Practitioner Family Medicine 01/03/23 documented as of this encounter
--- OUTSIDE RECORDS SUMMARY | 2024-03-29 10:47 | XMS_ITS | Encounter Summary ---
Author Organization [employer] Address [address] [facility] 7[address] [place] [address] Care Team Providers Care Dynamiter Name Role Phone Harsh Young MD Primary Care Prov ider Eduin Shaw Unavailable Unavailable Reason for Visit * Reason Onset Date Comments Chart Prep 02/28/2024 Encounter Details Date Type Department Care Team ([facility] st Contact Info) Description 02/28/2024 Telephone [facility] MED & PEDS [address] [place] [address] Harsh Young MD [address] [place] [address] Chart Prep Social History Tobacco Use Types Packs/Day Years [...] encounter Miscellaneous Notes * Telephone Encounter - Aliya Mendoza [place] - 02/28/2024 4:37 PM EST Chart Prep Labs: done Images: not applicable Vaccines due: yes Referrals: n/a Screenings: eye exam , Foot Exam Overdue care gaps: Glucose, Sbirt, SDOH, Oral Health, disability screening documented in this encounter Plan of Treatment Upcoming Encounters Date Type Department Care Team ([facility] st Contact Info) Description 04/03/2024 11:00 AM EST Clinical Support [facility] MED & PEDS [address] [place] [address] Missy Michelle, LEONARDO [address] [place] [address] documented as of this encounter Visit Diagnoses Not on filedocumented in this encounter Additional Health Concerns Assessment Noted Time PHQ-9 Depression Total Score: 5 07/06/19 24 2:43 PM EDT documented as of this encounter Care Teams Dynamiter Relationship Specialty Start Date End Date Harsh Young MD [address] [place] [address] PCP - General Internal Medicine 10/08/19 Eduin Shaw FNP [address] [place] [address] Nurse Practitioner Family Medicine 01/03/23 documented as of this encounter
--- OUTSIDE RECORDS SUMMARY | 2024-03-29 10:47 | XMS_ITS | Encounter Summary ---
Author Organization [employer] Address [address] [facility] 7t [place] [address] Care Team Providers Care Community Artist Name Role Phone Harsh Young MD Primary Care Prov ider Eduin Shaw Unavailable Unavailable Encounter Details Date Type Department Care Team (Late st Contact Info) Description 02/08/2024 Telephone [facility] MEDICINE [address] [place] [address] Harsh Young MD [address] [place] [address] Social History Tobacco Use Types Packs/Day Years Used Date Smoking Tobacco: Former Cigarettes 0.5 10 2 000 - 2009 Passive Smoke Exposure: Never Smokeless Tobacco: Never [...] encounter Miscellaneous Notes * Telephone Encounter - Becca Rust LPN - 02/09/2024 11:19 AM EST Lyrica to soon for refill and Ambien was sent to [facility] #[id number] on 02/08/24. * Telephone Encounter - Joshua Mays - 02/08/2024 4:32 PM EST TC from pt requesting medication refill. Medications needing refill : zolpidem (Ambien) 5 MG tablet pregabalin (Lyrica) 100 MG capsule To be sent to: [facility]/pharmacy #[id number] - [place] [address] documented in this encounter Plan of Treatment Upcoming Encounters Date Type Department Care Team (Late st Contact Info) Description 04/03/2024 11:00 AM EST Clinical Support [facility] MED & PEDS [address] [place] [address] Missy Michelle, LEONARDO [address] [place] [address] documented as of this encounter Visit Diagnoses Diagnosis Diabetic polyneuropathy associated with type 2 diabetes mellitus (CMS/HCC) documented in this encounter Additional Health Concerns Assessment Noted Time PHQ-9 Depression Total Score: 5 07/06/19 24 2:43 PM EDT documented as of this encounter Care Teams Community Artist Relationship Specialty Start Date End Date Harsh Young MD [address] [facility] [place] [address] PCP - General Internal Medicine 10/08/19 Eduin Shaw FNP [address] [place] [address] Nurse Practitioner Family Medicine 01/03/23 documented as of this encounter
--- OUTSIDE RECORDS SUMMARY | 2024-03-29 10:47 | XMS_ITS | Encounter Summary ---
Author Organization [employer] Address 75 [facility] 7t [place] [address] Care Team Providers Care Restaurant Recruiter Name Role Phone Harsh Young MD Primary Care Prov ider Eduin Shaw Unavailable Unavailable Reason for Visit * Reason Onset Date Comments Nurse Triage 03/22/2024 Encounter Details Date Type Department Care Team (Late st Contact Info) Description 03/22/[address] [facility] [address] [place] [address] Harsh Young MD [address] [place] [address] Nurse Triage Social History Tobacco Use Types Packs/Day Years [...] encounter Miscellaneous Notes * Telephone Encounter - Cristina Ngo RN - 03/22/2024 9:38 AM EST Call returned to Juvenal Hewitt to triage below. Reports having sx of cough, runny nose and ST[facility] [place] set on Monday night. Pt endorses subjective fever. Denies any N/V or diarrhea. Denies any sick contacts. Pt offered SDC appt today at [facility]. Pt declines does note wish to leave the home. Pt offeredto reffer to [facility]. Pt states will call himself to set up. Reviewed [facility] operating hours and that wait times vary. Reviewed home care advise, ER precautions and reasons to call back. Protocol Used: COVID-19 - Diagnosed or Suspected (Adult) Protocol-Based Disposition: Discuss with PCP and Callback by Nurse within 1 Hour Video visit offer not recorded Positive Triage Question: * HIGH RISK patient (e.g., weak immune system, age > 64 years, obesity with BMI of 30 or higher,, chronic lung disease) and COVID symptoms (e.g., cough, fever) (Exceptions: Already seen by doctor or FIELD FOREMAN/PA and no new or worsening symptoms.) * All higher-acuity triage questions were negative Care Advice Discussed: * Reassurance and Education - Suspected COVID-19 and Testing Needed * Cough Medicines * Humidifier * Coughing Spells * Reasons To Call Back - Fever over 103 F (39.4 C) - Chest pain or difficulty breathing occurs - You become worse * Telephone Encounter - Joshua Mays - 03/22/2024 9:26 AM EST Symptoms: Cough, Sore Throat, Runny Nose, Breathing Trouble Outcome: Transfer to a nurse or provider NOW! Reason: Struggling for each breath (severe trouble breathing) The caller accepted this outcome. documented in this encounter Plan of Treatment Upcoming Encounters Date Type Department Care Team (Late st Contact Info) Description 04/03/2024 11:00 AM EST Clinical Support [facility] MED & PEDS [address] [place] [address] Missy Michelle RN [address] [place] [address] documented as of this encounter Visit Diagnoses Not on filedocumented in this encounter Additional Health Concerns Assessment Noted Time PHQ-9 Depression Total Score: 5 07/06/19 24 2:43 PM EDT documented as of this encounter Care Teams Restaurant Recruiter Relationship Specialty Start Date End Date Harsh Young MD [address] [place] [address] PCP - General Internal Medicine 10/08/19 Eduin Shaw FNP [address] [place] [address] Nurse Practitioner Family Medicine 01/03/23 documented as of this encounter
--- OUTSIDE RECORDS SUMMARY | 2024-03-29 10:47 | XMS_ITS | Encounter Summary ---
Author Organization [employer] Address [address] [facility] 7 [place] [address] Care Team Providers Care Product Inspection Supervisor Name Role Phone Harsh Young MD Primary Care Prov ider Eduin Shaw Unavailable Unavailable Encounter Details Date Type Department Care Team (Late st Contact Info) Description 03/19/2024 3:30 PM EST Office Visit [facility] MED & PEDS [address] [place], [place] [phone] Harsh Young MD [address] [place] [address] STD exposure (Primary Dx); Type 2 diabetes mellitus without complication, with long-term current use of insulin (CMS/HCC); Psychosis, unspecified psychosis type (CMS/HCC); Primary hypertension Social History Tobacco Use Types Packs/Day Years [...] the past 12 months, has t he [employer], gas, oil or water [employer] threatened to shut off services in your home? No 12/11/2022 Depression Answer Date Recorded Patient Health Questionnaire-2 Score 1 07/06/2023 Sex and Gender Information Value Date Recorded Sex Assigned at Male 12/13/2021 10:18 AM EDT Legal Sex Male 10:18 AM EDT Gender Identity Male 12/13/2021 10:18 AM EDT Sexual Orientation Straight 12/13/2021 10 :18 AM EDT documented as of this encounter Last Filed Vital Signs Vital Sign Reading Time Taken Comments Blood Pressure 134/66 03/19/2024 3:10 PM EST Pulse 70 03/19/2024 3:10 PM EST Temperature 36.6 ??C (97.8 ??F) 03/19/2024 3:10 PM ES T Respiratory Rate 20 03/19/2024 3:10 PM EST Oxygen Saturation 98% 03/19/2024 3:10 PM EST Inhaled Oxygen Concentration - - Weight 114 kg (251 lb) 03/19/2024 3:10 PM EST Height 180.3 cm (5' 11 ) 03/19/2024 3:10 PM EST Body Mass Index 35.01 03/19/2024 3:10 PM EST documented in this encounter Progress Notes * Harsh Mantilla MD - 03/19/2024 3:30 PM EST Subjective Patient ID: Juvenal Hewitt is a 68 y.o. male who presents for No chief complaint on file.. Hypertension This is a chronic problem. Pertinent negatives include no anxiety, chest pain, orthopnea or shortness of breath. Review of Systems Respiratory: Negative for shortness of breath. Cardiovascular: Negative for chest pain and orthopnea. Objective Physical Exam Constitutional: General: He is not in acute distress. Appearance: He is normal weight. HENT: Head: Normocephalic. Nose: Nose normal. Mouth/Throat: Mouth: Mucous membranes are moist. Comments: Has braces Eyes: Extraocular Movements: Extraocular movements intact. Pupils: Pupils are equal, round, and reactive to light. Cardiovascular: Rate and Rhythm: Normal rate and regular rhythm. Pulses: Dorsalis pedis pulses are 2+ on the right side and 2+ on the left side. Posterior tibial pulses are 2+ on the right side and 2+ on the left side. Heart sounds: Normal heart sounds. No murmur heard. Pulmonary: Effort: Pulmonary effort is normal. Breath sounds: Normal breath sounds. Abdominal: General: Bowel sounds are normal. There is no distension. Palpations: Abdomen is soft. There is no mass. Tenderness: There is no abdominal tenderness. There is no guarding. Musculoskeletal: General: Normal range of motion. Right lower leg: No edema. Left lower leg: No edema. Right foot: Normal range of motion. No deformity, bunion, Charcot foot or prominent metatarsal heads. Left foot: Normal range of motion. No deformity, bunion, Charcot foot or prominent metatarsal heads. Feet: Right foot: Protective Sensation: 7 sites tested. 7 sites sensed. Skin integrity: Skin integrity normal. No ulcer, blister, skin breakdown, erythema, warmth, callus or dry skin. Toenail Condition: Right toenails are normal. Left foot: Protective Sensation: 7 sites tested. 7 sites sensed. Skin integrity: Skin integrity normal. No ulcer, blister, skin breakdown, erythema, warmth, callus or dry skin. Toenail Condition: Left toenails are normal. Skin: Capillary Refill: Capillary refill takes less than 2 seconds. Findings: No rash. Neurological: Mental Status: He is oriented to person, place, and time. Psychiatric: Mood and Affect: Mood normal. Behavior: Behavior normal. Assessment/Plan Problem List Items Addressed This Visit Hypertension Controlled, keep low sodium diet and exercise as tolerated, new labs ordered Psychosis ([facility]) Relevant Medications zolpidem (Ambien) 5 MG tablet Type 2 diabetes mellitus without complication, with long-term current use of insulin ([facility]) Controlled, last A1c was 7.0%, keep low carb/no sugar diet, follow up in 3 months Relevant Orders POCT Glucose (Completed) Other Visit Diagnoses STD exposure - Primary Relevant Orders HIV-1/2 Antigen and Antibodies, Fourth Generation, with Reflexes Hepatitis C Antibody with Reflex to HCV, RNA, Quantitative, Real-Time PCR Syphilis Screen Chlamydia/N. Gonorrhoeae RNA, TMA, Urogenitial documented in this encounter Miscellaneous Notes * Assessment & Plan Note - Harsh Mantilla MD - 03/19/2024 10:16 PM ESTAssociated Problem(s): Type 2 diabetes mellitus without complication, with long-term current use ofinsulin (CMS/HCC) Controlled, last A1c was 7.0%, keep low carb/no sugar diet, follow up in 3 months * Assessment & Plan Note - Harsh Mantilla MD - 03/19/2024 10:16 PM ESTAssociated Problem(s): Hypertension Controlled, keep low sodium diet and exercise as tolerated, new labs ordered documented in this encounter Plan of Treatment Upcoming Encounters Date Type Department Care Team (Late st Contact Info) Description 04/03/2024 11:00 AM EST Clinical Support [facility] MED & PEDS [address] [place] [address] Missy Michelle, LEONARDO [address] [place] [address] Scheduled Orders Name Type Priority Associated Diagnoses Orde r Schedule HIV-1/2 Antigen and Antibodies, Fourth Generation, with Reflexes Lab Routine STD exposure Expected: 03/19/2024 (Approximate), Expires: 03/19/2025 Hepatitis C Antibody with Reflex to HCV, RNA, Quantitative, Real-Time PCR Lab Routine STD exposure Expected: 03/19/2024, Expires: 03/19/2025 Syphilis Screen Lab Routine STD exposure Expected: 03/19/2024, Expires: 03/19/2025 Chlamydia/N. Gonorrhoeae RNA, TMA, Urogenitial Microbiology Routine STD exposure Ordered: 03/19/2024 documented as of this encounter Procedures Procedure Name Priority Date/Time Associated Diagnosis Comments POCT GLUCOSE Routine 03/19/2024 3:13 PM EST Type 2 diabetes mellitus without complication, with long-term current use of insulin ([facility]) documented in this encounter Results * POCT Glucose (03/19/2024 3:13 PM EST) Pathologist [facility] Glucose Blood, POC 120 60 - 200 mg/dL QC Media Lot # [id number] Lot# Expiration Date Blood Capillary blood specimen / Unknown 03/19/2024 3:13 PM EST Harsh Mantilla MD POINT OF CARE TEST ENTER/EDIT ORDERABLES Final Result documented in this encounter Visit Diagnoses Diagnosis STD exposure- Primary Type 2 diabetes mellitus without complication, with long-term current use of insulin ([facility]) Psychosis, unspecified psychosis type ([facility]) Primary hypertension Unspecified essential hypertension documented in this encounter Additional Health Concerns Assessment Noted Time PHQ-9 Depression Total Score: 5 07/06/19 24 2:43 PM EDT documented as of this encounter Care Teams Product Inspection Supervisor Relationship Specialty Start Date End Date Harsh Young MD [address] [place] [address] PCP - General Internal Medicine 10/08/19 Eduin Shaw FNP [address] [place] [address] Nurse Practitioner Family Medicine 01/03/23 documented as of this encounter
--- OUTSIDE RECORDS SUMMARY | 2024-03-29 10:47 | XMS_ITS | Encounter Summary ---
Author Organization [employer] Address 75 [facility] 7t [place] [address] Care Team Providers Care Theatre Instructor Name Role Phone Harsh Young MD Primary Care Prov ider Eduin Shaw Unavailable Unavailable Reason for Visit * Reason Onset Date Comments Appointment Request 02/21/2023 Encounter Details Date Type Department Care Team (Late st Contact Info) Description 02/21/2023 Telephone [facility]INE [address] [place] [address] Harsh Young MD [address] [place] [address] Appointment Request Social History Tobacco Use Types Packs/Day Years [...] encounter Miscellaneous Notes * Telephone Encounter - Vladimir Monroe - 02/21/2023 10:46 AM EST Tc from pt requesting to r/s PATIENT FINANCIAL SERVICES COORDINATOR RN appt for 02/24/23, Appt has been cancelled. Please contact at [phone] [place] documented in this encounter Plan of Treatment Upcoming Encounters Date Type Department Care Team ([facility] st Contact Info) Description 04/03/2024 11:00 AM EST Clinical Support [facility] MED & PEDS [address] [place] [address] Missy Michelle, LEONARDO [address] [place] [address] documented as of this encounter Visit Diagnoses Not on filedocumented in this encounter Additional Health Concerns Assessment Noted Time PHQ-9 Depression Total Score: 1 01/04/20 23 9:52 AM EST documented as of this encounter Care Teams Theatre Instructor Relationship Specialty Start Date End Date Harsh Young MD [address] [place] [address] PCP - General Internal Medicine 10/08/19 Eduin Shaw FNP [address] [place] [address] Nurse Practitioner Family Medicine 01/03/23 documented as of this encounter
--- OUTSIDE RECORDS SUMMARY | 2024-03-29 10:47 | XMS_ITS | Encounter Summary ---
Author Organization [employer] Address 75 [facility] 7t [place] [address] Care Team Providers Care Draw End Hand Name Role Phone Harsh Young MD Primary Care Prov ider Eduin Shaw Unavailable Unavailable Reason for Visit * Reason Comments Med Refill Encounter Details Date Type Department Care Team ([facility] st Contact Info) Description 01/17/2024 Refill [facility] CH[facility] MED & PEDS [address] [place] [address] Harsh Young MD [address] [place] [address] Social History Tobacco Use Types Packs/Day Years [...] Description 04/03/2024 11:00 AM EST Clinical Support [facility] MED & PEDS [address] [place] [address] Missy Michelle, LEONARDO [address] [place] [address] documented as of this encounter Visit Diagnoses Not on filedocumented in this encounter Additional Health Concerns Assessment Noted Time PHQ-9 Depression Total Score: 5 07/06/19 24 2:43 PM EDT documented as of this encounter Care Teams Draw End Hand Relationship Specialty Start Date End Date Harsh Young MD [address] [place] [address] PCP - General Internal Medicine 10/08/19 Eduin Shaw FNP [address] [place] [address] Nurse Practitioner Family Medicine 01/03/23 documented as of this encounter
--- OUTSIDE RECORDS SUMMARY | 2024-03-29 10:47 | XMS_ITS | Encounter Summary ---
Author Organization [employer] Address 75 [facility] 7t [place] [address] Care Team Providers Care Biofuels Technology Manager Name Role Phone Harsh Young MD Primary Care Prov ider Eduin Shaw Unavailable Unavailable Reason for Visit * Reason Onset Date Comments Med Refill 03/07/2024 Encounter Details Date Type Department Care Team (Late st Contact Info) Description 03/07/2024 Refill [facility] MED & PEDS [address] [place], [place] [phone] Harsh Young MD [address] [place], [place] [phone] Diabetic polyneuropathy associated with type 2 diabetes mellitus (CMS/HCC) (Primary Dx) Social History Tobacco Use Types Packs/Day Years [...] encounter Miscellaneous Notes * Telephone Encounter - Rosita Cummings - 03/07/2024 11:37 AM EST Tc from pt requesting a new script for Jardiance 25 MG , and Insulin Syringe 31G X 5/16 0.5 ML misc and pregabalin (Lyrica) 100 MG capsule. ( [id number] ) documented in this encounter Plan of Treatment Upcoming Encounters Date Type Department Care Team ([facility] Contact Info) Description 04/03/2024 11:00 AM EST Clinical Support [facility] MED & PEDS [address] [place] [address] Missy Michelle, LEONARDO [address] [place] [address] documented as of this encounter Visit Diagnoses Diagnosis Diabetic polyneuropathy associated with type 2 diabetes mellitus (CMS/HCC)- Primary documented in this encounter Additional Health Concerns Assessment Noted Time PHQ-9 Depression Total Score: 5 07/06/19 24 2:43 PM EDT documented as of this encounter Care Teams Biofuels Technology Manager Relationship Specialty Start Date End Date Harsh Young MD [address] [place] [address] PCP - General Internal Medicine 10/08/19 Eduin Shaw FNP [address] [place] [address] Nurse Practitioner Family Medicine 01/03/23 documented as of this encounter
--- OUTSIDE RECORDS SUMMARY | 2024-03-29 10:47 | XMS_ITS | Encounter Summary ---
Author Organization [employer] Address 75 [facility] 7t [place] [address] Care Team Providers Care Cone Former Name Role Phone Harsh Young MD Primary Care Prov ider Eduin Shaw Unavailable Unavailable Reason for Visit * Reason Comments Med Refill Encounter Details Date Type Department Care Team (Late st Contact Info) Description 01/12/2023 Refill [facility] [address] [place] [address] Myron Thakkar MD [address] [place] [address] Social History Tobacco Use Types Packs/Day Years Used Date Smoking Tobacco: Former Cigarettes 0.5 10 2 000 - 2009 Passive Smoke Exposure: Never Smokeless Tobacco: Never Alcohol Use Standard Drinks/Week Comments Yes 4 (1 standard drink = 0.6 oz pur e alcohol) Depression Answer Date Recorded Patient Health Questionnaire-9 Score 1 01/03/2023 Patient Health Questionnaire-9 Score 1 01/03/2023 Last PHQ-9: Questionnaire Data Not on file 1 03/05/2022 Housing Stability Answer Date Recorded What is [...] Answer Date Recorded Patient Health Questionnaire-2 Score 0 01/03/2023 Sex and Gender Information Value Date Recorded Sex Assigned at Male 12/13/2021 10:18 AM EDT Legal Sex Male 10:18 AM EDT Gender Identity Male 12/13/2021 10:18 AM EDT Sexual Orientation Straight 12/13/2021 10 :18 AM EDT documented as of this encounter Plan of Treatment Upcoming Encounters Date Type Department Care Team ([facility] st Contact Info) Description 04/03/2024 11:00 AM EST Clinical Support [facility] MED & PEDS [address] [place] [address] Missy Michelle RN [address] [place] [address] documented as of this encounter Visit Diagnoses Not on filedocumented in this encounter Additional Health Concerns Assessment Noted Time PHQ-9 Depression Total Score: 1 01/04/20 23 9:52 AM EST documented as of this encounter Care Teams Cone Former Relationship Specialty Start Date End Date Harsh Young MD [address] [place] [address] PCP - General Internal Medicine 10/08/19 Eduin Shaw FNP [address] [place] [address] Nurse Practitioner Family Medicine 01/03/23 documented as of this encounter
--- OUTSIDE RECORDS SUMMARY | 2024-03-29 10:47 | XMS_ITS | Encounter Summary ---
Author Organization [employer] Address [address] [place] [address] 7t [place] [address] Care Team Providers Care Director Of Flight Operations Name Role Phone Harsh Young MD Primary Care Prov ider Eduin Shaw Unavailable Unavailable Reason for Visit * Reason Onset Date Comments Med Refill 10/11/2022 Encounter Details Date Type Department Care Team ([facility] st Contact Info) Description 10/11/2022 Telephone [facility] MED & PEDS [address] [place] [address] Harsh Young MD [address] [place] [address] Med Refill Social History Tobacco Use Types Packs/Day Years Used Date Smoking Tobacco: Former Cigarettes 0.5 10 2 000 - 2010 Passive Smoke Exposure: Never Smokeless Tobacco: Never Alcohol Use Standard Drinks/Week Comments Yes 4 (1 standard drink = 0.6 oz pur e alcohol) Sex and Gender Information Value Date Recorded Sex Assigned at Male 12/13/2021 10:18 AM EDT Legal Sex Male 10:18 AM EDT Gender Identity Male 12/13/2021 10:18 AM EDT Sexual Orientation Straight 12/13/2021 10 :18 AM EDT documented as of this encounter Miscellaneous Notes * Telephone Encounter - Becca Rust LPN - 10/11/2022 4:25 PM EDT Medication pended to PCP. * Telephone Encounter - Arlin Stokesro - 10/11/2022 4:07 PM EDT Tc from pt requesting med refill on pregabalin (Lyrica) 100 MG capsule Please sent to [facility]pharmacy #[id number] - [place] [facility] [address] [facility] documented in this encounter Plan of Treatment Upcoming Encounters Date Type Department Care Team (Late st Contact Info) Description 04/03/2024 11:00 AM EST Clinical Support [facility] MED & PEDS [address] [place] [address] Missy Michelle RN [address] [place] [address] documented as of this encounter Visit Diagnoses Not on filedocumented in this encounter Additional Health Concerns Assessment Noted Time PHQ-9 Depression Total Score: 7 09/28/19 10:54 AM EDT documented as of this encounter Care Teams Director Of Flight Operations Relationship Specialty Start Date End Date aHrsh Young MD [address] [place] [address] PCP - General Internal Medicine 10/08/19 Eduin Shaw FNP [address] [place] [address] Nurse Practitioner Family Medicine 01/03/23 documented as of this encounter
--- OUTSIDE RECORDS SUMMARY | 2024-03-29 10:47 | XMS_ITS | Encounter Summary ---
Author Organization [employer] Address 75 [facility] 7t [place] [address] Care Team Providers Care Principal Architect Name Role Phone Harsh Young MD Primary Care Prov ider Eduin Shaw Unavailable Unavailable Reason for Visit * Reason Comments Med Refill Encounter Details Date Type Department Care Team ([facility] st Contact Info) Description 12/22/2023 Refill [facility] MED & PEDS [address] [place] [address] Susan Aldridge MD [address] [place] [address] Diabetic polyneuropathy associated with type 2 diabetes mellitus (CMS/HCC) Social History Tobacco Use Types Packs/Day Years [...] Upcoming Encounters Date Type Department Care Team ([facility] st Contact Info) Description 04/03/2024 11:00 AM EST Clinical Support [facility] MED & PEDS [address] [place] [address] Missy Michelle RN [address] [place] [address] documented as of this encounter Visit Diagnoses Diagnosis Diabetic polyneuropathy associated with type 2 diabetes mellitus (CMS/HCC) documented in this encounter Additional Health Concerns Assessment Noted Time PHQ-9 Depression Total Score: 5 07/06/19 24 2:43 PM EDT documented as of this encounter Care Teams Principal Architect Relationship Specialty Start Date End Date Harsh Young MD [address] [place] [address] PCP - General Internal Medicine 10/08/19 dEuin Shaw FNP [address] [place] [address] Nurse Practitioner Family Medicine 01/03/23 documented as of this encounter
--- OUTSIDE RECORDS SUMMARY | 2024-03-29 10:47 | XMS_ITS | Encounter Summary ---
Author Organization [employer] Address 75 [facility] 7t [place] [address] Care Team Providers Care Geropsychologist Name Role Phone Harsh Young MD Primary Care Prov ider Eduin Shaw Unavailable Unavailable Reason for Visit * Reason Onset Date Comments Med Refill 03/15/2024 Encounter Details Date Type Department Care Team (Late st Contact Info) Description 03/15/2024 Refill [facility] MEDICINE [address] [place] [address] Harsh Young MD [address] [place] [address] Acute midline low back pain with right-sided sciatica Social History Tobacco Use Types Packs/Day Years [...] encounter Miscellaneous Notes * Telephone Encounter - Carson Moeller - 03/15/2024 8:45 AM EST TC from pt requesting medication refill. Medications needing refill : oxyCODONE-acetaminophen (Percocet) 5-325 MG tablet To be sent to: [facility]/pharmacy #[id number] [place] [address] documented in this encounter Plan of Treatment Upcoming Encounters Date Type Department Care Team (Late st Contact Info) Description 04/03/2024 11:00 AM EST Clinical Support [facility] MED & PEDS [address] [place] [address] Missy Michelle RN [address] [place] [address] documented as of this encounter Visit Diagnoses Diagnosis Acute midline low back pain with right-sided sciatica documented in this encounter Additional Health Concerns Assessment Noted Time PHQ-9 Depression Total Score: 5 07/06/19 24 2:43 PM EDT documented as of this encounter Care Teams Geropsychologist Relationship Specialty Start Date End Date Harsh Young MD [address] [place] [address] PCP - General Internal Medicine 10/08/19 Eduin Shaw FNP [address] [place] [address] Nurse Practitioner Family Medicine 01/03/23 documented as of this encounter
--- OUTSIDE RECORDS SUMMARY | 2024-03-29 10:47 | XMS_ITS | Encounter Summary ---
Author Organization [employer] Address [address] [facility] 7t [place] [address] Care Team Providers Care Practice Support Specialist Name Role Phone Harsh Young MD Primary Care Prov ider Eduin Shaw Unavailable Unavailable Reason for Visit * Reason Onset Date Comments No Show 02/29/2024 Encounter Details Date Type Department Care Team ([facility] st Contact Info) Description 02/29/2024 Telephone [facility] CH[facility] MED & PEDS [address] [place] [address] Harsh Young MD [address] [place] [address] No Show Social History Tobacco Use Types Packs/Day Years [...] encounter Miscellaneous Notes * Telephone Encounter - Marylou Brasher - 02/29/2024 1:24 PM EST 02/29/24 no show for dm documented in this encounter Plan of Treatment Upcoming Encounters Date Type Department Care Team (Late st Contact Info) Description 04/03/2024 11:00 AM EST Clinical Support [facility] MED & PEDS [address] [place] [address] Missy Michelle RN [address] [place] [address] documented as of this encounter Visit Diagnoses Not on filedocumented in this encounter Additional Health Concerns Assessment Noted Time PHQ-9 Depression Total Score: 5 07/06/19 24 2:43 PM EDT documented as of this encounter Care Teams Practice Support Specialist Relationship Specialty Start Date End Date Harsh Young MD [address] [place] [address] PCP - General Internal Medicine 10/08/19 Eduin Shaw FNP [address] [place] [address] Nurse Practitioner Family Medicine 01/03/23 documented as of this encounter
--- OUTSIDE RECORDS SUMMARY | 2024-03-29 10:47 | XMS_ITS | Encounter Summary ---
Author Organization [employer] Address [address] [facility] 7t [place] [address] Care Team Providers Care Jewelry Cutter Name Role Phone Harsh Young MD Primary Care Prov ider Eduin Shaw Unavailable Unavailable Reason for Visit * Reason Onset Date Comments Med Refill 07/11/2023 Encounter Details Date Type Department Care Team (Late st Contact Info) Description 07/11/2023 Telephone [facility] MEDICINE [address] [place] [address] Harsh Young MD [address] [place] [address] Med Refill Social History Tobacco Use Types [...] * Telephone Encounter - Damián Duenas - 07/11/2023 9:35 AM EDT TC from pt requesting medication refill. Medications needing refill : oxyCODONE-acetaminophen (Percocet) 5-325 MG tablet To be sent to: [id number] [place] - [address] [place] [address] documented in this encounter Plan of Treatment Upcoming Encounters Date Type Department Care Team ([facility] st Contact Info) Description 04/03/2024 11:00 AM EST Clinical Support [facility] MED & PEDS [address] [place] [address] Missy Michelle, LEONARDO [address] [place] [address] documented as of this encounter Visit Diagnoses Not on filedocumented in this encounter Additional Health Concerns Assessment Noted Time PHQ-9 Depression Total Score: 5 07/06/19 24 2:43 PM EDT documented as of this encounter Care Teams Jewelry Cutter Relationship Specialty Start Date End Date Harsh Young MD [address] [place] [address] PCP - General Internal Medicine 10/08/19 Eduin Shaw FNP [address] [place] [address] Nurse Practitioner Family Medicine 01/03/23 documented as of this encounter
--- OUTSIDE RECORDS SUMMARY | 2024-03-29 10:47 | XMS_ITS | Encounter Summary ---
Author Organization [facility] Address [address] [place] [address] Care Team Providers Care Spot Sprayer Name Role Phone Harsh Young Primary Care Provide r Encounter Details Date Type Department Care Team (Late st Contact Info) Description 03/26/2024 Community Care Management [facility] [address] [place] [address] Britney Landin Social History Tobacco Use Types Packs/Day Years [...] for your loved ones. For example, child and adolescent therapist or elderly care for an older adult? [...] Orientation Straight 03/26/2024 11 :24 AM EST documented as of this encounter Progress Notes * Britney Landin - 03/26/2024 2:18 PM EST Outreached patient on 03/26/24 Thrive Screening: Complete Outcome: Negative Follow up plan: As Needed Edyta Landin Community Health Worker documented in this encounter Plan of Treatment Not on file documented as of this encounter Visit Diagnoses Not on filedocumented in this encounter Additional Health Concerns Infection Onset Date Last Indicated Resolved Time Respiratory Rule-Out 03/26/2024 03/26/2024 025 11:48 AM EST COVID-19 Rule-Out 03/26/2024 03/26/2024 03/26/2024 11:48 AM EST Influenza 03/26/2024 03/26/2024 documented as of this encounter Care Teams Spot Sprayer Relationship Specialty Start Date End Date Harsh Young [address] [place], [place] PCP - General Internal Medicine 01/23/20 documented as of this encounter
--- OUTSIDE RECORDS SUMMARY | 2024-03-29 10:47 | XMS_ITS | Encounter Summary ---
Author Organization [employer] Address [address] [facility] 7[address] [place] [address] Care Team Providers Care Extended Day Teacher Name Role Phone Harsh Young MD Primary Care Prov ider Eduin Shaw Unavailable Unavailable Reason for Visit * Reason Comments Med Refill Encounter Details Date Type Department Care Team ([facility] st Contact Info) Description 02/05/2024 Refill [facility] CHC MED & PEDS [address] [place] [address] Susan Aldridge MD [address] [place] [address] Diabetic polyneuropathy associated with type 2 diabetes [...] Upcoming Encounters Date Type Department Care Team ([facility] st Contact Info) Description 04/03/2024 11:00 AM EST Clinical Support [facility] MED & PEDS [address] [place] [address] Missy Michelle RN [address] [place] [address] documented as of this encounter Visit Diagnoses Diagnosis Diabetic polyneuropathy associated with type 2 diabetes mellitus (CMS/HCC) documented in this encounter Additional Health Concerns Assessment Noted Time PHQ-9 Depression Total Score: 5 07/06/19 24 2:43 PM EDT documented as of this encounter Care Teams Extended Day Teacher Relationship Specialty Start Date End Date Harsh Young MD [address] [place] [address] PCP - General Internal Medicine 10/08/19 Eduin Shaw FNP [address] [place] [address] Nurse Practitioner Family Medicine 01/03/23 documented as of this encounter
--- OUTSIDE RECORDS SUMMARY | 2024-03-29 10:47 | XMS_ITS | Encounter Summary ---
Author Organization [employer] Address [address] [place] [address] 7t [place] [address] Care Team Providers Care Power Lineworker Name Role Phone Harsh Young MD Primary Care Prov ider Eduin Shaw Unavailable Unavailable Reason for Visit * Reason Comments Med Refill Encounter Details Date Type Department Care Team (Late st Contact Info) Description 10/11/2022 Refill [facility] MED & PEDS [address] [place] [address] Angelic Vázquez MD Diabetic polyneuropathy associated with type 2 diabetes mellitus ([facility]) Social History Tobacco Use Types Packs/Day Years [...] 11:00 AM EST Clinical Support [facility] MED & PEDS [address] [place] [address] Missy Michelle, RN [address] [place] [address] documented as of this encounter Visit Diagnoses Diagnosis Diabetic polyneuropathy associated with type 2 diabetes mellitus ([facility]) documented in this encounter Additional Health Concerns Assessment Noted Time PHQ-9 Depression Total Score: 7 09/28/19 23 10:54 AM EDT documented as of this encounter Care Teams Power Lineworker Relationship Specialty Start Date End Date Harsh Young MD [address] [place] [address] PCP - General Internal Medicine 10/08/19 Eduin Shaw FNP [address] [place] [address] Nurse Practitioner Family Medicine 01/03/23 documented as of this encounter
--- OUTSIDE RECORDS SUMMARY | 2024-03-29 10:47 | XMS_ITS | Encounter Summary ---
Author Organization [employer] Address [address] [facility] [address]t [place] [address] Care Team Providers Care Rental Counter Clerk Name Role Phone Harsh Young MD Primary Care Prov ider Eduin Shaw Unavailable Unavailable Reason for Visit * Reason Onset Date Comments Medication Question 03/31/2023 Encounter Details Date Type Department Care Team (Late st Contact Info) Description 03/31/2023 Telephone [facility] MEDICINE [address] [place] [address] Harsh Young MD [address] [place] [address] Medication Question Social History Tobacco Use Types Packs/Day Years Used Date Smoking Tobacco: Former Cigarettes 0.5 10 2 000 - 2009 Passive Smoke Exposure: Never Smokeless Tobacco: Never Alcohol Use Standard Drinks/Week Comments Yes 4 (1 standard drink = 0.6 oz pur e alcohol) Depression Answer Date Recorded Patient Health Questionnaire-9 Score 1 03/07/2023 Patient Health Questionnaire-9 Score 1 03/07/2023 Last PHQ-9: Questionnaire Data Not on file 0 03/07/2023 Housing Stability Answer Date Recorded What is [...] Date Recorded Patient Health Questionnaire-2 Score 0 03/07/2023 Sex and Gender Information Value Date Recorded Sex Assigned at Male 12/13/2021 10:18 AM EDT Legal Sex Male 10:18 AM EDT Gender Identity Male 12/13/2021 10:18 AM EDT Sexual Orientation Straight 12/13/2021 10 :18 AM EDT documented as of this encounter Miscellaneous Notes * Telephone Encounter - Damián Duenas - 03/31/2023 2:25 PM EST Tc from patient calling to inform the PCP that the patient still has enough of the oxyCODONE-acetaminophen (Percocet) 5-325 MG tablet until 04/04 and will not need a refill till then documented in this encounter Plan of Treatment Upcoming Encounters Date Type Department Care Team (Late st Contact Info) Description 04/03/2024 11:00 AM EST Clinical Support [facility] CHC MED & PEDS [address] [place] [address] Missy Michelle RN [address] [place] [address] documented as of this encounter Visit Diagnoses Diagnosis Chronic bilateral low back pain with bilateral sciatica documented in this encounter Additional Health Concerns Assessment Noted Time PHQ-9 Depression Total Score: 1 03/07/19 24 10:05 AM EST documented as of this encounter Care Teams Rental Counter Clerk Relationship Specialty Start Date End Date Harsh Young MD [address] [place] [address] PCP - General Internal Medicine 10/08/19 Eduin Shaw FNP [address] [place] [address] Nurse Practitioner Family Medicine 01/03/23 documented as of this encounter
--- OUTSIDE RECORDS SUMMARY | 2024-03-29 10:47 | XMS_ITS | Encounter Summary ---
Author Organization [employer] Address [address] [facility] [address] [place] [address] Care Team Providers Care Matrix Bath Attendant Name Role Phone Harsh Young MD Primary Care Prov ider Eduin Shaw Unavailable Unavailable Encounter Details Date Type Department Care Team (Latest Contact Info) Description 03/19/2024 Travel Social History Tobacco Use Types Packs/Day Years [...] Description 04/03/2024 11:00 AM EST Clinical Support [facility] MED & PEDS [address] [place] [address] Missy Michelle, LEONARDO [address] [place] [address] documented as of this encounter Visit Diagnoses Not on filedocumented in this encounter Additional Health Concerns Assessment Noted Time PHQ-9 Depression Total Score: 5 07/06/19 24 2:43 PM EDT documented as of this encounter Care Teams Matrix Bath Attendant Relationship Specialty Start Date End Date Harsh Young MD [address] [place] [address] PCP - General Internal Medicine 10/08/19 Eduin Shaw FNP [address] [place] [address] Nurse Practitioner Family Medicine 01/03/23 documented as of this encounter
--- OUTSIDE RECORDS SUMMARY | 2024-03-29 10:47 | XMS_ITS | Encounter Summary ---
Author Organization [facility] Address [address] [place] [address] Care Team Providers Care Marketing Sales Consultant Name Role Phone Harsh Young Primary Care Provide r Reason for Visit * Reason Comments Shortness of Breath Shortness of Breath x 1 Day Cough Encounter Details Date Type Department Care Team (Late st Contact Info) Description 03/26/2024 10:44 AM EST - 03/26/2024 1:14 PM [facility] Emergency [address] [place] [id number] Acute bronchitis, unspecified organism (Primary Dx) Discharge Disposition: Home or Self Care Social History Tobacco Use Types Packs/Day Years [...] your loved ones. For example, child care team lead or elderly care for an older adult? [...] AM EST documented as of this encounter Last Filed [...] Mass Index 34.87 03/26/2024 10:11 AM EST documented in this encounter Discharge Instructions * Discharge Instructions* NICOLAS Cruz - 03/26/2024 12:44 PM EST Your chest x-ray shows no evidence of pneumonia. Your flu swab is positive influenza A, however your symptoms have been present for longer than 48 hours so antiviral medication is not indicated. However, it is very important that you continue using your albuterol inhaler with the spacer. Use 2 puffs 3-4 times per day as needed. Also, you are being prescribed Decadron. Please start this tomorrow morning take it twice a day for 4 days. It is very important you check your blood sugar while on the Decadron. Use your sliding scale as needed. If the blood sugar goes over 400 please return to the emergency department. * Attachments The following attachments cannot be sent through Care Everywhere. * Bronchitis (Urdu) documented in this encounter Medications at Time of Discharge dexAMETHasone (DECADRON) 4 mg tablet Take 1 tablet (4 mg total) by mouth 2 (two) times a day for 4 days. 8 each 03/26/2024 03/30/2024 documented as of this encounter Ordered Prescriptions Prescription Sig Dispense Quantity Refills Last Filled Start Date End Date dexAMETHasone (DECADRON) 4 mg tablet Take 1 tablet (4 mg total) by mouth 2 (two) times a day for 4 days. 8 each 03/26/2024 03/30/2024 documented in this encounter Discharge Disposition Disposition Code Departure Means Destination Comment s Home or Self Care documented in this encounter Progress Notes * Princess Rapp RN - 03/26/2024 10:10 AM EST Pt sts I've had a cold for a week increasing sob and cough since yesterday , + chills but denies fevers * NICOLAS Cruz - 03/26/2024 9:58 AM EST Emergency Medicine Note Patient Name: Juvenal Hewitt Initial Evaluation: 03/26/2024 : 1955 Patient's PCP: Jose Rafael Stover Emergency Physician: NICOLAS Cruz History of Present Illness Chief Complaint: Chief Complaint Patient presents with ??? Shortness of Breath Shortness of Breath x 1 Day ??? Cough HPI: 68-year-old male with a history of diabetes and hypertension and chronic low back pain complaining of nasal congestion sore throat cough shortness of breath for the past 1 week. Patient states that his breathing became worse today so came to the emergency department. Cough is nonproductive. Denies fever chills chest pain abdominal pain nausea vomiting. States his appetite has been normal. ROS: I have performed a ROS with the pertinent positives and negatives documented in the history ofpresent illness. Previous History Past Medical History: Diagnosis Date ??? Bilateral leg edema DX:Bilateral leg edema ??? Chronic lower back pain DX:Chronic lower back pain ??? Diabetes mellitus type 2, controlled, with complications (CMS/HCC) DX:Diabetes mellitus type 2, controlled, with complications ([facility]) ??? Essential hypertension DX:Essential hypertension ??? Family history of cardiovascular disease DX:Family history of cardiovascular disease ??? Hyperlipidemia DX:Hyperlipidemia No past surgical history on file. Social History Tobacco Use ??? Smoking status: Former ??? Smokeless tobacco: Never No family history on file. has No Known Allergies. No current facility-administered medications on file prior to encounter. No current outpatient medications on file prior to encounter. Physical Exam ED Triage Vitals [03/26/24 1011] Temp Heart Rate Resp BP 36.7 ??C (98.1 ??F) 72 20 136/66 SpO2 Temp Source Heart Rate Source Patient Position 95 % Oral -- -- BP Location FiO2 (%) -- -- General: Well-appearing, well nourished, in no acute distress HEENT: PERRL, EOMI, external ears and nose appear unremarkable, airway is patent Neck: Supple, full range of motion Chest: Diffuse expiratory wheezes throughout. Patient speaking full sentences there is no hypoxia. Circulatory: RRR, extremities well perfused Abdomen: Non-distended, Non-Tender Extremities: Normal ROM, No edema Skin: Warm and dry Neuro: Alert and oriented, no focal deficits Results Labs Reviewed [id number], RSV, FLU A AND B QUALITATIVE RT-PCR, INTERNAL LAB Abnormal Labs Reviewed - No abnormal labs to display XR Chest 2 Views Final Result FINDINGS/IMPRESSION: Left basilar atelectasis/scarring, unchanged. No pneumonia or pulmonary edema.No pleural effusion or pneumothorax. Cardiac silhouette and bones are within normal limits. -------- FINAL REPORT -------- Dictated By: RADHA COX Dictated Date: 03/26/2024 10:35 ET Assigned Physician: RADHA COX Reviewed and Electronically Signed By: RADHA COX Signed Date: 03/26/2024 10:41 ET Workstation ID: [id number] Transcribed By: Self Edit Transcribed Date: 03/26/2024 10:35 ET I have discussed the incidental/abnormal imaging and/or lab abnormalities with the patient and haveinstructed them the need for further evaluation and workup with their primary care doctor. I have provided the patient with a paper copy of the abnormality. The laboratory results, imaging results and other diagnostic exam results were reviewed in the EMR. EKG Interpretation Critical Care Time None Medical Decision Making Medications ipratropium-albuteroL (DUONEB) 0.5-2.5 mg/3 mL nebulizer solution 3 mL (has no administration in time range) Patient was evaluated. Chest x-ray shows no evidence of infiltrate or CHF. DuoNeb respiratory treatment administered. After the DuoNeb respiratory treatment patient reports that he feels better. He has improved air movement still wheezing so albuterol 2.5 and Decadron IV and patient will be discharged. Viral panel was positive for influenza A. Symptoms have been present for greater than 48 hours so Tamiflu is not indicated. Clinical Impressions as of 03/26/24 1245 Acute bronchitis, unspecified organism Procedures Procedures Diagnosis No diagnosis found. Influences/bronchitis Disposition Data Unavailable Discharge ED Prescriptions None Physician Attestation NICOLAS Cruz 03/26/24 1117 NICOLAS Cruz 03/26/24 1159 NICOLAS Cruz 03/26/24 1246 Cosigned by Ganesh Fernandez DO at 03/26/2024 3:12 PM EST documented in this encounter Plan of Treatment Not on file documented as of this encounter Procedures Procedure Name Priority Date/Time Associated Diagnosis Comments XR CHEST 2 VIEWS STAT 03/26/2024 10:3 0 AM EST [id number], RSV, FLU A AND B QUALITATIVE RT-PCR, INTERNAL LAB STAT 03/26/2024 10:15 AM EST documented in this encounter Results [...] Signed Date: 03/26/2024 10:41 ET Workstation ID: [id number] Transcribed By: Self Edit Transcribed Date: 03/26/2024 [...] Signed Date: 03/26/2024 10:41 ET Workstation ID: [id number] Transcribed By: Self Edit Transcribed Date: 03/26/2024 10:35 ET Ganesh Fernandez DO IMG XR PROCEDURES Final Res ult * (ABNORMAL) [id number], RSV, Influenza A and B qualitative RT-PCR (03/26/2024 10:15 AM EST) Influenza A PCR Detected(A) Not Detected LAB MICROBIOLOGY METHOD 03/26/2024 11:48 AM EST [facility] Influenza B PCR Not Detected Not Detected LAB MICROBIOLOGY METHOD 03/26/2024 11:48 AM [facility] RSV PCR Not Detected Not Detected LAB MICROBIOLOGY METHOD 03/26/2024 11:48 AM [facility] SARS COV-2 Not Detected Not Detected LAB MICROBIOLOGY METHOD 03/26/2024 11:48 AM [facility] Swab Structure of right anterior naris / Unknown Non-blood Collection / Unknown 03/26/2024 10:15 AM EST 03/26/2024 10:34 AM EST [facility] - 03/26/2024 11:48 AM EST Disclaimer: ??Testing was performed using the [employer] GeneXpert Xpress SARS-CoV-2 _Flu_RSV PLUS PCR assay. [...] for Healthcare providers can be found at https://www.fda.gov/media/596246/download. ?? Fact sheet for Healthcare patients can be found at https://www.fda.gov/media/342501/download. us Ganesh Fernandez DO LAB MICROBIOLOGY - GENERAL ORDERABLES Final Result [facility] [address] [place] [address], documented in this encounter Visit Diagnoses Diagnosis Acute bronchitis, unspecified organism- Primary documented in this encounter Administered Medications Inactive Administered Medications - up to 3 most recent administrations Medication Order MAR Action Action Date Dose Rate Site albuterol 2.5 mg /3 mL (0.083 %) nebulizer solution 2.5 mg 2.5 mg, nebulization, Once, On Mon03/26/24 at 1201, For 1 dose Given 03/26/2024 12:04 PM EST 2.5 mg dexAMETHasone (DECADRON) injection 10 mg 10 mg, intravenous, Once, On Mon03/26/24 at 1201, For 1 dose Given 03/26/2024 12:05 PM EST 10 mg ipratropium-albuteroL (DUONEB) 0.5-2.5 mg/3 mL nebulizer solution 3 mL 3 mL, nebulization, Once, On Mon03/26/24 at 1117, For 1 dose Given 03/26/2024 11:22 AM EST 3 mL sodium chloride 0.9 % bolus 500 mL 500 mL, intravenous, at 1,000 mL/hr, Administer over 30 Minutes, Once, On Mon03/26/24 at 1201, For 1 dose New Bag 03/26/2024 12:05 PM EST 500 mL 10 00 mL/hr documented in this encounter Active and Recently Administered Medications Times are shown in EST. Scheduled Medication Order 03/24/2024 03/25/2024 03/26/2024 albuterol 2.5 mg /3 mL (0.083 %) nebulizer solution 2.5 mg (COMPLETED) 2.5 mg, nebulization, Once, On Mon03/26/24 at 1201, For 1 dose 1204 (Given - Provid er: Milli Moeller RN) dexAMETHasone (DECADRON) injection 10 mg (COMPLETED) 10 mg, intravenous, Once, On Mon03/26/24 at 1201, For 1 dose 1205 (Given - Provid er: Milli Moeller RN) ipratropium-albuteroL (DUONEB) 0.5-2.5 mg/3 mL nebulizer solution 3 mL (COMPLETED) 3 mL, nebulization, Once, On Mon03/26/24 at 1117, For 1 dose 1122 (Given - Provid er: Milli Moeller RN) sodium chloride 0.9 % bolus 500 mL (COMPLETED) 500 mL, intravenous, at 1,000 mL/hr, Administer over 30 Minutes, Once, On Mon03/26/24 at 1201, For 1 dose 1205 (New Bag - Prov ider: Milli Moeller RN)1300 (Stopped - Provider: Milli Moeller RN) documented in this encounter Additional Health Concerns Infection Onset Date Last Indicated Resolved Time Respiratory Rule-Out 03/26/2024 03/26/2024 025 11:48 AM EST COVID-19 Rule-Out 03/26/2024 03/26/2024 03/26/2024 11:48 AM EST Influenza 03/26/2024 03/26/2024 documented as of this encounter Care Teams Marketing Sales Consultant Relationship Specialty Start Date End Date Harsh Young [address] [place], [place] PCP - General Internal Medicine 01/23/20 documented as of this encounter
--- OUTSIDE RECORDS SUMMARY | 2024-03-29 10:47 | XMS_ITS | Clinical Summary ---
Author Organization [employer] Address [address] [place] [address] Care Team Providers Care Enterprise Systems Architect Name Role Phone Harsh Young MD Primary Care Prov ider Eduin Shaw Unavailable Unavailable Allergies Active Allergy Reactions Criticality Noted Date Comments Ibuprofen 07/05/2012 Other reaction(s): GI Problems, upset stomach Wound Dressing Adhesive 02/04/2022 Other reaction(s): burning/blisters Medications Alcohol Swabs (Alcohol Prep) pads use twice to three times a day as directed 014 Active Lancets 33G misc Check blood sugar 3 times a day Active meloxicam (Mobic) 15 MG tabletIndication s:Arthropathy of lumbar facet joint TAKE 1 TABLET BY MOUTH EVERY DAY IN THE MORNING 90 tablet 2 023 Active Blood Pressure kit 1 kit in the morning. 1 kit 023 Active NIFEdipine XL (Procardia XL) 30 MG 24 hr tablet Take 1 tablet (30 mg) by mouth in the morning. Do not crush, chew, or split. 30 tablet 11 024 2024 Active Acetaminophen Extra Strength 500 MG tablet TAKE 2 TABLET BY ORAL ROUTE EVERY 4 - 6 HOURS NEEDED NOT TO EXCEED 8 TABLETS PER 24HRS NEEDED 90 tablet 3 024 Active metFORMIN (Glucophage) 1000 MG tablet TAKE 1 TABLET BY MOUTH TWICE A DAY WITH BREAKFAST AND DINNER 180 tablet 3 024 Active cetirizine (ZyrTEC) 10 MG tabletIndication s:Seasonal allergic rhinitis, unspecified trigger TAKE 1 TABLET BY MOUTH EVERY DAY IN THE MORNING 90 tablet 3 Active losartan (Cozaar) 100 MG tablet TAKE 1 TABLET BY MOUTH EVERY DAY IN THE MORNING 90 tablet 3 Active escitalopram (Lexapro) 20 MG tabletIndication s:Psychosis, unspecified psychosis type (CMS/HCC) Take 1 tablet (20 mg) by mouth Once per day. 90 tablet 3 024 Active haloperidol (Haldol) 5 MG tabletIndication s:Psychosis, unspecified psychosis type (CMS/HCC) Take 1 tablet (5 mg) by mouth 2 times daily. 180 tablet 3 Active atorvastatin (Lipitor) 40 MG tabletIndication s:Mixed hyperlipidemia TAKE 1 TABLET BY MOUTH EVERY DAY IN THE MORNING 90 tablet 1 Active chlorthalidone (Hygroton) 25 MG tabletIndication s:Primary hypertension TAKE 1 TABLET BY MOUTH EVERY DAY IN THE MORNING 90 tablet 1 Active dulaglutide (Trulicity) 4.5 MG/0.5ML solution pen-injectorIndi cations:Type 2 diabetes mellitus without complication, with long-term current use of insulin (CMS/HCC) Inject 4.5 mg under the skin 1 (one) time per week. 6 mL 024 2024 Active Lantus 100 UNIT/ML injection INJECT 30 UNITS SUBCUTANEOUSLY ONCE A DAY 30 mL 2 Active albuterol (Ventolin HFA) 108 (90 Base) MCG/ACT inhalerIndicatio ns:Primary hypertension INHALE 2 PUFFS EVERY 6 HOURS IF NEEDED FOR WHEEZING. 18 g Active fluticasone (Flonase) 50 MCG/ACT nasal spray SPRAY 1 - 2 SPRAY BY INTRANASAL ROUTE EVERY DAY IN EACH NOSTRIL NEEDED 48 mL Active carvedilol (Coreg) 6.25 MG tabletIndication s:Primary hypertension TAKE 1 TABLET BY MOUTH WITH BREAKFAST AND EVENING MEAL 180 tablet Active omeprazole (PriLOSEC) [address] capsuleIndicatio ns:Gastroesophag eal reflux disease without esophagitis TAKE 1 CAPSULE (20 MG) BY MOUTH BEFORE BREAKFAST 90 capsule 1 024 2024 Active FREESTYLE LITE test stripIndications :Type 2 diabetes mellitus without complication, with long-term current use of insulin (CMS/HCC) USE INSTRUCTED 3 TIMES DAILY 100 strip 11 Active ketoconazole (NIZOral) 2 % shampoo APPLY TOPICALLY 2 TIMES A WEEK 120 mL 1 Active lidocaine (Lidoderm) 5 % patch APPLY 1 PATCH TOPICALLY IN THE MORNING. 90 patch 025 2024 Active Jardiance 25 MGIndications:Di abetic polyneuropathy associated with type 2 diabetes mellitus (CMS/HCC) Take 1 tablet (25 mg) by mouth in the morning. 90 tablet 3 Active pregabalin (Lyrica) 100 MG capsuleIndicatio ns:Diabetic polyneuropathy associated with type 2 diabetes mellitus (CMS/HCC) TAKE 1 CAPSULE BY MOUTH THREE TIMES A DAY 270 capsule 1 Active Insulin Syringe 31G X 5/16 0.5 ML miscIndications: Diabetic polyneuropathy associated with type 2 diabetes mellitus (CMS/HCC) 1 Syringe Once per day. Use with Lantus once daily 100 each 3 Active oxyCODONE-acetam inophen (Percocet) 5-325 MG tabletIndication s:Acute midline low back pain with right-sided sciatica Take 1 tablet by mouth every 12 (twelve) hours if needed for severe pain. Do not start before March 16, 2024. 60 tablet 025 2024 Active triamcinolone (Kenalog) 0.1 % cream Apply topically if needed in the morning and at bedtime (pain and swelling). 30 g 5 025 Active Mometasone Furoate (Asmanex HFA) 200 MCG/ACT aerosol Inhale 1 Act (200 mcg) 2 times daily. 60 Act 025 2024 Active zolpidem (Ambien) 5 MG tabletIndication s:Psychosis, unspecified psychosis type (CMS/HCC) TAKE 1 TABLET BY MOUTH AT BEDTIME NEEDED FOR SLEEP 30 tablet Active Insulin Syringe 31G X 5/16 0.5 ML misc 1 Syringe in the morning. Use with Lantus once daily 100 each 1 024 2024 Discontinued(R eorder (will not trigger notification to Pharmacy)) Jardiance 25 MG TAKE 1 TABLET BY MOUTH EVERY DAY IN THE MORNING 90 tablet 3 024 2024 Discontinued(R eorder (will not trigger notification to Pharmacy)) pregabalin (Lyrica) 100 MG capsuleIndicatio ns:Diabetic polyneuropathy associated with type 2 diabetes mellitus ([facility]/HCC) TAKE 1 CAPSULE BY MOUTH THREE TIMES A DAY 270 capsule 1 024 2024 Discontinued(R eorder (will not trigger notification to Pharmacy)) dulaglutide (Trulicity) 1.5 MG/0.5ML solution pen-injectorIndi cations:Type 2 diabetes mellitus with diabetic polyneuropathy, without long-term current use of insulin ([facility]) Inject 1.5 mg under the skin 1 (one) time per week. 4 pen 11 024 2024 Discontinued zolpidem (Ambien) 5 MG tabletIndication s:Psychosis, unspecified psychosis type (CMS/HCC) TAKE 1 TABLET BY MOUTH AT BEDTIME NEEDED FOR SLEEP 30 tablet 024 2024 Discontinued(R eorder (will not trigger notification to Pharmacy)) oxyCODONE-acetam inophen (Percocet) 5-325 MG tabletIndication s:Acute midline low back pain with right-sided sciatica Take 1 tablet by mouth every 12 (twelve) hours if needed for severe pain. Do not start before February 13, 2024. 60 tablet 024 2024 Discontinued(R eorder (will not trigger notification to Pharmacy)) Active Problems Problem Noted Date Diagnosed Date Type 2 diabetes mellitus wit hout complication, with long-term current use of insulin 03/19/2024 Assessment & Plan (03/19/2024 10:16 PM EST): Controlled, last A1c was 7.0%, keep low carb/no sugar diet, follow up in 3 months Microalbuminuria 10/04/2023 Assessment & Plan (10/04/2023 11:06 AM EDT): On arb and SGLt2, continue tight glucose and Bp control Epidermoid cyst of skin of chest 06/23/2023 Assessment & Plan (06/23/2023 12:24 AM EDT): Will refer to surgery for excision Seborrheic dermatitis 04/17/2023 Assessment & Plan (04/17/2023 1:56 PM EST): Will order ketoconazole shampoo Type 2 diabetes mellitus wit h diabetic polyneuropathy, without long-term current use of insulin 05/12/2022 Assessment & Plan (06/23/2023 12:22 AM EDT): Patient has not been able to get Trulicity 3.0 due to unavailability, will send to [facility] pharmacy, continue rest of treatment, keep low carb diet, follow up in 3 months Assessment & Plan (05/24/2023 12:17 AM EDT): A1c today was 7.1 will increase trulicity to 3mg, continue lantus, metformin/jardiance, follow up in 3 months. New labs will be ordeed Assessment & Plan (01/26/2023 5:47 PM EST): Not at target but improving, he is not following diet reccomendations, will follow up in 3 months Assessment & Plan (05/12/2022 3:24 PM EDT): Labs ordered not done, he is on lantus 30 units, metformin, jardiance and trulicity. No reported episode of hypoglycemia. Eye exam scheduled for July as per patient Prostate cancer screening 05/12/2022 Screening for colon cancer 05/12/2022 Assessment & Plan (05/12/2022 3:27 PM EDT): Will send cologard, risk were discussed Psychosis 04/05/2022 Assessment & Plan (07/06/2023 3:43 PM EDT): Still doing very well, mood is good and hallucinations completely controlled. Shaking of hands has resolved. Continue Haldol 5 mg BID, Escitalopram 20 mg daily and Ambien 5 mg at bedtime as needed. Pt is cautioned not to combine Zolpidem with Percocet (from PCP), r/t excess sedation, increased risk of falls, etc. No therapist and not interested at this time, although he does check in with [facility] now and then. Since this provider will be retiring, he is now referred back to PCP for further medication management. Any issues or concerns, contact the health center. All his questions were answered and I have wished him well. He agrees with the plan. Assessment & Plan (05/08/2023 10:52 AM EDT): Still doing very well, mood is good and hallucinations completely controlled. Shaking of hands has resolved. Continue Haldol 5 mg BID, Escitalopram 20 mg daily and Ambien 5 mg at bedtime as needed. Pt is cautioned not to combine Zolpidem with Percocet (from PCP), r/t excess sedation, increased risk of falls, etc. No therapist and not interested at this time, although he does check in with [facility] now and then. On 11/03/2022 Provider informed patient that I would be retiring. Meanwhile F/U with me in 2 months. He agrees with the plan. Assessment & Plan (03/07/2023 10:36 AM EST): Still doing very well, mood is good and hallucinations completely controlled. Shaking of hands has resolved. Continue Haldol 5 mg BID, Escitalopram 20 mg daily and Ambien 5 mg at bedtime as needed. Pt is cautioned not to combine Zolpidem with Percocet (from PCP), r/t excess sedation, increased risk of falls, etc. No therapist and not interested at this time, although he does check in with Integrated Clin[facility] now and then. On 11/03/2022 Provider informed patient that I would be retiring. Meanwhile F/U with me in 2 months. He agrees with the plan. Assessment & Plan (01/03/2023 10:17 AM EST): Still doing very well, mood is good and hallucinations completely controlled. Shaking of hands has resolved. Continue Haldol 5 mg BID, Escitalopram 20 mg daily and Ambien 10 mg 1/2 to 1 tab at bedtime. Pt is cautioned not to combine Zolpidem with Percocet (from PCP), r/t excess sedation, increased risk of falls, etc. F/U with me in 2 months. He agrees with the plan. No therapist and not interested at this time, although he does check in with [facility] now and then. On 11/03/2022 Provider informed patient that I would be retiring within the next year or so. Assessment & Plan (11/03/2022 10:36 AM EDT): Still doing very well, mood is good and hallucinations completely controlled. Shaking of hands improved with decreased dose of Haldol. I have asked the patient to please let me know right away if that recurs. Continue Haldol 5 mg BID, Escitalopram 20 mg daily and Ambien 10 mg 1/2 to 1 tab at bedtime. F/U with me in 2 months. He agrees with the plan. Today 11/03/2022 Provider informed patient that I would be retiring within the next year or so. Assessment & Plan (09/27/2022 11:52 AM EDT): Still doing very well, mood is good and hallucinations completely controlled. However he has recently developed abnormal movements of his hands, concerning for medication side effect. At this time will decrease to Haldol 5 mg BID. Continue Escitalopram 20 mg daily and Ambien 10 mg 1/2 to 1 tab at bedtime. F/U with me in 1 month. he agrees with the plan. Assessment & Plan (06/27/2022 12:01 PM EDT): Still doing very well. Will continue Haldol 10 mg BID, Escitalopram 20 mg daily and Ambien 10 mg 1/2 to 1 tab at bedtime. F/U with me in 2-3 months. he agrees with the plan. Assessment & Plan (04/05/2022 1:56 PM EST): Still doing very well. Will continue Haldol 10 mg BID, Escitalopram 20 mg daily and Ambien 10 mg 1/2 to 1 tab at bedtime. F/U with me in 2-3 months. he agrees with the plan. Facet arthritis, degenerative, lumbar spine 01/14 Assessment & Plan (11/25/2022 8:51 PM EDT): ?? Continue following with PCP, Pain Management, [facility], and physical therapy ?? Interested in trial of [facility] Acupuncture clinic ?? Continues with Lyrica and PRN medications. Reviewed med safety and SE ?? Initially discussed option of toradol injection in office. Pt was in agreement, unfortunately, not in stock at time of appt ?? Shared decision making for short course of prednisone PO ?? ED precautions reviewed ?? Plan: upcoming appt scheduled with PCP to discuss possible COT Benign prostatic hyperplasia 02/04/2022 Class 2 obesity 02/04/2022 Gastroesophageal reflux disease 02/04/2022 Impacted cerumen 02/04/2022 Chronic depression 10/22/2014 Hypercholesterolemia 11/22/2013 Assessment & Plan (02/04/2022 2:40 PM EST): On atorvastatin, will place order for new labs for guidance of therapy Hypertension 11/22/2013 Assessment & Plan (03/19/2024 10:16 PM EST): Controlled, keep low sodium diet and exercise as tolerated, new labs ordered Assessment & Plan (10/04/2023 11:03 AM EDT): Controlled, continue low sodium diet and exercise as tolerated, keep current treatment, follow up in 4 months Assessment & Plan (06/23/2023 12:23 AM EDT): Controlled, no changes will be made, refers at home remains below 135/80, keep low sodium diet and bp log for next appointment Assessment & Plan (05/24/2023 12:16 AM EDT): Slightly above target, he refers at home >80% is below 130/80, he is on losartan 100mg, chlorthalidone 25mg and nifedipine 30mg Assessment & Plan (04/17/2023 1:55 PM EST): Will lower nifedipine to 30mg, refers having bilateral lower extremity swelling after starting the new dose, will increase carvedilol to 6.25 bid, watch for low heart rate or symptoms related as discussed Assessment & Plan (01/26/2023 5:45 PM EST): Not at target, will increase nifedipine to 60mg, reinreinforced low sodium diet and exercise as tolerated, keep bp log, follow up in 6 week Assessment & Plan (05/12/2022 3:26 PM EDT): Not controlled but most likely due to back pain, refers for the past 3 days he has been suffering back pain, with associated elevated bp. Will leave current treatment, reinforced low sodium diet and exercise as tolerated, new lab orders placed. Assessment & Plan (02/04/2022 2:39 PM EST): Controlled, refers blood pressure maintains below 130/80, no changes will be made, reinforced low sodium diet and exercise as tolerated, nd to keep bp log Opioid dependence 01/31/2012 Type 2 diabetes mellitus wit h diabetic polyneuropathy, with long-term current use of insulin 12/21/2011 Assessment & Plan (10/04/2023 11:08 AM EDT): Continue metformin/jardiance, Lantus 40 units, will increase Trulicity to 4.5mg, keep low carb/no sugar diet, new A1c will be ordered Pending eye exam he refers appointment is scheduled for December Assessment & Plan (02/04/2022 2:39 PM EST): Controlled, on trulicity/lantus/jardiance/metformin, will order new a1c for guidance of therapy, last from 07/2021 <7.0% Lumbago 12/21/2011 Assessment & Plan (01/26/2023 5:48 PM EST): Pain more controlled with oxycodone, he is being followed by pain management Assessment & Plan (12/22/2022 6:47 PM EST): Patient not tolerating home remedies, constantly in pain, receiving injection from pain management but the pain relief dont last until his next appointment, will provide oxycodone bid, reviewed risk. Assessment & Plan (11/15/2022 3:08 PM EDT): No neurologic deficit, as per patient has appointment with pain management in 2 weeks, will prescribe prednisone x 5 days, continue home remedies, he saw back specialist on 11/2021 and he was not a candidate for surgery Assessment & Plan (05/12/2022 3:27 PM EDT): Will provide prednisone for 5 days, continue tylenol, apply ice/heat pads, follow up with pain management Obstructive sleep apnea syndrome 12/21/2011 Assessment & Plan (04/17/2023 1:58 PM EST): Will refer for sleep study stopbang score 6 points Encounters Date Type Department Care Team Description 03/29/2024 Telephone [facility] [address], [place] [phone] Harsh Young MD ER Follow-up 03/26/2024 Orders Only [facility] [employer] [facility] [address] [place] [address] Enio Saxena MD 03/22/2024 Telephone [facility] [address] [place] [address] Harsh Young MD Nurse Triage 03/19/2024 3:30 PM EST Office Visit [facility] [address], [place] [phone] Harsh Young MD STD exposure (Primary Dx); Type 2 diabetes mellitus without complication, with long-term current use of insulin ([facility]); Psychosis, unspecified psychosis type (CMS/[facility]); Primary hypertension 03/19/2024 Travel 03/15/2024 Refill [facility] [address] [place] [address] Harsh Young MD Acute midline low back pain with right-sided sciatica 03/07/2024 Refill [facility] [address] [place] [address] Harsh Young MD Diabetic polyneuropathy associated with type 2 diabetes mellitus (CMS/HCC) (Primary Dx) 02/29/2024 Telephone [facility] [address] [place] [address] Harsh Young MD No Show 02/28/2024 Telephone [facility] [address] [place] [address] Harsh Young MD Chart Prep 02/23/2024 Refill [facility] [address] [place] [address] Harsh Young MD 02/12/2024 Travel 02/11/2024 Refill [facility] [address] [place] [address] Harsh Young MD 02/09/2024 Refill [facility] [address] [place] [address] Harsh Young MD Acute midline low back pain with right-sided sciatica 02/08/2024 Telephone [facility] [address] [place] [address] Harsh Young MD 02/06/2024 Refill [facility] [address] [place] [address] Harsh Young MD Psychosis, unspecified psychosis type (CMS/HCC) 02/05/2024 Refill [facility] [address] [place] [address] Susan Aldridge MD Diabetic polyneuropathy associated with type 2 diabetes mellitus ([facility]/HCC) 02/01/2024 Refill [facility] [address] [place] [address] Harsh Young MD Type 2 diabetes mellitus without complication, with long-term current use of insulin (CMS/HCC) 01/29/2024 Telephone [facility] [address] [place] [address] Harsh Young MD Med Refill 01/17/2024 Refill [facility] [address] [place] [address] Harsh Young MD 01/15/2024 Refill [facility] [address] [place] [address] Harsh Young MD Acute midline low back pain with right-sided sciatica 01/10/2024 2:15 PM EST Clinical Support [facility] [address] [place] [address] Missy Michelle RN Chronic bilateral low back pain with bilateral sciatica (Primary Dx) 01/10/2024 Travel from Last 3 Months Immunizations Name Administration Dates Next Due INFLUENZA VACCINE QUADRIVALE NT RECOMBINANT PRESERVATIVE FREE RIV4 11/13/2019 Influenza Quadrivalent Adjuvanted 12/01/2020 Influenza injectable quadriv alent IIV4 with preservative 11/13/2018,11/02/2015,11/03/2014 Influenza injectable quadriv alent preservative free 12/08/2016 Influenza, IIV3, injectable 11/26/2017, 4 Influenza, Split (incl. gabby fied surface antigen) 10/29/2012,12/21/2011 Pneumococcal Conjugate PCV 13 11/13/2018 Pneumococcal Conjugate PCV 20 01/26/2023 Tdap 11/02/2015 Family History Medical History Relation Name Comments Dementia Mother Diabetes Mother Dementia Other Breast cancer Sister Relation Name Status Comments Mother Other Sister Social History Tobacco Use Types Packs/Day Years Used Date Smoking Tobacco: Former Cigarettes 0.5 10 2 000 - 2009 Passive Smoke Exposure: Never Smokeless Tobacco: Never Tobacco Cessation:Counseling Given: Not Answered Alcohol Use Standard Drinks/Week Comments Yes 4 [...] Orientation Straight 12/13/2021 10 :18 AM EDT Last Filed Vital Signs Vital Sign Reading [...] Mass Index 35.01 03/19/2024 3:10 PM EST Plan of Treatment Upcoming Encounters Date Type Department Care Team (Late st Contact Info) Description 04/03/2024 11:00 AM EST Clinical Support [facility] [address] [place] [address] Missy Michelle, RN [address] [place] [address] Health Maintenance Due Date Last Done Comments CT Colonography 1953 Colonoscopy 1953 FIT 1953 FOBT 1953 Sigmoidoscopy 1955 Eye Exam 10/04/1963 Alcohol/Substance Use Screening 1965 Zoster Vaccines (1 of 2) 10/04/2003 RSV Patients and Patients Aged 60 years or older (1 - Risk 60-74 years 1-dose series) 2013 SDOH Screening 02/04/2023 02/04/2022 COVID-19 Vaccine ( season) 2023 01/20/2021, 05/05/2020, 04/07/2020 Influenza Vaccine (#1) 2023 , 12/01/2020, 11/13/2019, Additional history exists Diabetes: Hemoglobin A1C 05/09/2024 024, 05/23/2023, 10/19/2022, Additional history exists Lipid Panel 05/24/2024 05/25/2023, 04/0 05/2022, 08/09/2021, Additional history exists Diabetes: Urine Protein Screening 06/08/2024 06/09/2023, 05/04/2020, 01/21/2019 Depression Screening 07/05/2024 07/06/2023, 07/06/19 24 Tobacco Screening 08/27/2024 08/28/2023 Diabetes: Foot Exam 03/19/2025 03/19/2024, 03/19/2024, 03/19/2024, Additional history exists DTaP/Tdap/Td Vaccines (2 - Td or Tdap) 11/01/2025 11/02/2015 Colorectal Cancer Screening 11/12/2026 FIT DNA/Cologuard 11/12/2026 11/13/2023 Hepatitis C Screening Completed 05/17/2022 , 05/17/2022, 08/09/2021 Pneumococcal Vaccine: 50+ Years Completed 01/26/2023, 11/13/2018 [...] patient's age to complete this topic Meningococcal Vaccine Aged Out No heber hayder eligible based on patient's age to complete this topic RSV under 20 months Aged Out No longe r eligible based on patient's age to complete this topic Rotavirus Vaccines Aged Out No longer eligible based on patient's age to complete this topic Procedures Procedure Name Priority Date/Time Associated Diagnosis Comments XR CHEST 2 VIEWS Routine 03/26/2024 11:1 4 AM EST POCT GLUCOSE Routine 03/19/2024 3:13 PM EST Type 2 diabetes mellitus without complication, with long-term current use of insulin (CMS/HCC) POCT KEYANNA-14 URINE DRUG SCREEN Routine 01/10/2024 2:25 PM EST Chronic bilateral low back pain with bilateral sciatica LAB COLOGUARD?? COLON CANCER SCREEN Routine 11/13/2023 9:40 AM EDT Screening for colon cancer HEMOGLOBIN A1C Routine 11/10/2023 9:06 AM EDT Type 2 diabetes mellitus without complication, with long-term current use of insulin (CMS/HCC) ALBUMIN, RANDOM URINE W/CREATININE Routine 06/09/2023 8:28 AM EDT LIPID PANEL, STANDARD Routine 05/25/2023 8:20 AM EDT Type 2 diabetes mellitus with diabetic polyneuropathy, without long-term current use of insulin (CMS/HCC) HEPATITIS C AB W/REFL TO HCV RNA, QN, PCR Routine 05/17/2022 8:31 AM EDT Type 2 diabetes mellitus with diabetic polyneuropathy, without long-term current use of insulin (CMS/HCC) from Last 3 Months or Most Recently Relevant to Health Maintenance Results * XR Chest 2 Views (03/26/2024 11:14 AM EST) Anatomical Region Laterality Modality Chest Radiographic Kell ging us Historical Provider MD IMG XR PROCEDURES Final R esult * POCT Glucose (03/19/2024 3:13 PM EST) Pathologist [facility] Glucose Blood, POC 120 60 - 200 mg/dL QC Media Lot # [id number] Lot# Expiration Date Blood Capillary blood specimen / Unknown 03/19/2024 3:13 PM EST Harsh Mantilla MD POINT OF CARE TEST ENTER/EDIT ORDERABLES Final Result * POCT KEYANNA-14 Urine Drug Screen (01/10/2024 2:25 PM EST) Pathologist [facility] Oxycodone Screen, Urine Positive Urine Urine specimen obtained by clean catch procedure / Unknown 01/10/2024 2:25 PM EST Narrative Missy Michelle RN - 01/10/2024 2:25 PM EST Lot# [id number] Exp: 01-19-25 Harsh Mantilla MD POINT OF CARE TEST ENTER/EDIT ORDERABLES Final Result * Cologuard?? colon cancer screening (11/13/2023 9:40 AM EDT) [facility] Cologuard Result Negative Negative 11/16/19 24 6:06 AM EDT Ant[facility] (CLIA #:[id number]) Comment: NEGATIVE TEST RESULT. A negative Cologuard result indicates a low likelihood that a colorectal cancer (CRC) or advanced adenoma (adenomatous polyps with more advanced pre-malignant features) ??is present. The chance that a person with a negative Cologuard test has a colorectal cancer is less than 1 in 1500 (negative predictive value >99.9%) or has an ??advanced adenoma is less than ??5.3% (negative predictive value 94.7%). These data are based on a prospective cross-sectional study of 10,000 individuals at average risk for colorectal cancer who were screened with both Cologuard and colonoscopy. (Bianca Jurado al, N Engl J Med 2014;370(14):1286- 1297) The normal value (reference range) for this assay is negative. COLOGUARD RE-SCREENING RECOMMENDATION: Periodic colorectal cancer screening is an important part of preventive healthcare for asymptomatic individuals at average risk for colorectal cancer. ??Following a negative Cologuard result, the [place] and U.S. Multi-Society Task Force screening guidelines recommend a Cologuard re-screening interval of 3 years. References: [place] Guideline for Colorectal Cancer Screening: https://www.cancer.org/cancer/kksez-qqdfhl-ixosuj/neqrabcas-axgsgogfm-sbhggvi/ac s-rec ommendations.html.; Claus DK, Jean-Pierre CR, Antione LirianoK, Colorectal Cancer Screening: Recommendations for Physicians and Patients from the U.S. Multi-Society Task Force on Colorectal Cancer Screening , Am J Gastroenterology 2017; 112:4609-7813. TEST DESCRIPTION: Composite algorithmic analysis of stool DNA-biomarkers with hemoglobin immunoassay. ?? Quantitative values of individual biomarkers are not reportable and are not associated with individual biomarker result reference ranges. Cologuard is intended for colorectal cancer screening of adults of either sex, 45 years or older, who are at average-risk for colorectal cancer (CRC). Cologuard has been approved for use by the U.S. FDA. The performance of Cologuard was established in a cross sectional study of average-risk adults aged 50-84. Cologuard performance in patients ages 45 to 49 years was estimated by sub-group analysis of near-age groups. Colonoscopies performed for a positive result may find as the most clinically significant lesion: colorectal cancer [4.0%], advanced adenoma (including sessile serrated polyps greater than or equal to 1cm diameter) [20%] or non- advanced adenoma [31%]; or no colorectal neoplasia [45%]. These estimates are derived from a prospective cross-sectional screening study of 10,000 individuals at average risk for colorectal cancer who were screened with both Cologuard and colonoscopy. (Bianca Jurado al, N Engl J Med 2014;370(14):7783-0442.) Cologuard may produce a false negative or false positive result (no colorectal cancer or precancerous polyp present at colonoscopy follow up). A negative Cologuard test result does not guarantee the absence of CRC or advanced adenoma (pre-cancer). The current Cologuard screening interval is every 3 years. ([place] [employer] and U.S. Multi-Society Task Force). Cologuard performance data in a 10,000 patient pivotal study using colonoscopy as the reference method can be accessed at the following location: www.Onzo.com/results. Additional description of the Cologuard test process, warnings and precautions can be found at www.cologuard.com. Stool specimen (specimen) 11/13/2023 9:40 AM EDT 11/14/2023 10:45 AM EDT Harsh Mantilla MD LAB MOLECULAR DIAG NOSTICS ORDERABLES Final Result Performing Organization Address City/[facility]/ZIP Co de Phone Number [employer] (CLIA #:[id number]) [place] [address], * (ABNORMAL) Hemoglobin A1c (11/10/2023 9:06 AM EDT) Hemoglobin A1c 6.3(H) <6.0 % [facility] Comment:Hemoglobin A1C Refer ence Range Adults: 4.8 - 6.0 % Non diabetic: < 6.0 % Goal: < 7.0 %Additional Action Suggested: > 8.0 %Note: Hemoglobin A1c results are invalid for patients with abnormal amounts of HbF. Blood transfusions may impact the HbA1c concentration in the patient sample. Estimated Average Glucose 134 mg/dL [facility] Comment:eAG = Estimated ave rage glucose which is %A1C expressed asaverage glucose, using the formula of the A2E-PhedhdlZftbvvw Glucose study (ADAG), Diabetes Care, Vol.31,#8,Sep. 2007 Blood Venous blood specimen / Unknown 11/10/2023 9:06 AM EDT 11/10/2023 2:07 PM EDT Harsh Mantilla MD LAB BLOOD ORDERABL ES Final Result Performing Organization Address City/[facility]/ZIP Co de Phone Number [facility] [address] [place] [address] [phone] * (ABNORMAL) Albumin, Random Urine W/Creatinine (06/09/2023 8:28 AM EDT) Creatinine, Urine 71.89 mg/dL [facility] Microalbumin Urine 80.0 mg/L [facility] Microalbum Creatinine Ratio Ur 111.2(H) <30 ug/mg cr [facility] Comment:Albumin/Creatinine R atio Reference Ranges: Normal: < 30 ug/mg creatinine Microalbuminuria: 30 - 300 ug/mg creatinineClinical Albuminuria: > 300 ug/mg creatinine 06/09/2023 8:28 AM EDT 06/09/2023 2:44 PM EDT Harsh Mantilla MD LAB URINE ORDERABL ES Final Result [facility] [address] [place] [phone] * (ABNORMAL) Lipid Panel, Standard (05/25/2023 8:20 AM EDT) Triglycerides 279(H) <150 mg/dL [facility] Comment:Desirable Triglyceri de: less than 150 mg/dLBorderline High Triglyceride 150-199 mg/dLHigh Triglyceride: 200-499 mg/dLVery High Triglyceride: greater than or equal to 5OO mg/dL Cholesterol 114 <200 mg/dL [facility] Comment:Desirable Cholestero l: less than 200 mg/dLBorderline High Cholesterol: 200-239 mg/dLHigh Cholesterol: greater than 239 mg/dL LDL Cholesterol Calculated 24 <100 mg/dL [facility] Comment:Desirable LDL: less than 100 mg/dLNear Optimal/Above Optimal LDL: 110- 129 mg/dLBorderline High LDL: 130-159 mg/dLHigh LDL: 160-189 mg/dLVery High LDL: greater than or equal to 190 mg/dL HDL Cholesterol 35(L) >40 mg/dL [facility] Comment:Desirable HDL: great er than 40 mg/dL Note: This HDL assay may give artificially low results in patients with liver disease. Blood Venous blood specimen / Unknown 05/25/2023 8:20 AM EDT 05/25/2023 2:27 PM EDT Harsh Mantilla MD LAB BLOOD ORDERABL ES Final Result Performing Organization Address City/[facility] Co de Phone Number [facility] [address] [place] [phone] * (ABNORMAL) Hepatitis C Antibody with Reflex to HCV, RNA, Quantitative, Real- Time PCR (05/17/2022 8:31 AM EDT) Hepatitis C Antibody REACTIVE( A) NON-REACT KILO [employer] Index >11.00(H) <1.00 [employer] Comment: Based on this result, the sample will be tested for HCV RNA by a Nucleic Acid Amplification Test (NAAT) to determine if the patient has a current active infection. Blood Venous blood specimen / Unknown 05/17/2022 8:31 AM EDT 05/17/2022 8:32 AM EDT Narrative [facility] - 05/21/2022 2:27 PM EDT FASTING:YES FASTING: YES Harsh Mantilla MD LAB BLOOD ORDERABL ES Final Result Performing Organization Address City/[facility] Co de Phone Number [facility] [address] [place] [address] [employer] [place] [employer] [address] [place] [phone] from Last 3 Months or Most Recently Relevant to Health Maintenance Insurance - ALO Care Teams Enterprise Systems Architect Relationship Specialty Start Date End Date Harsh Young MD [address] [place] [address] PCP - General Internal Medicine 10/08/19 Eduin Shaw FNP [address] [place] [address] Nurse Practitioner Family Medicine 01/03/23
--- OUTSIDE RECORDS SUMMARY | 2024-03-29 10:47 | XMS_ITS | Encounter Summary ---
Author Organization [employer] [facility] [employer] Address [address] [facility] [address]t [place] [address] Care Team Providers Care Work Counselor Name Role Phone Harsh Young MD Primary Care Prov ider Eduin Shaw Unavailable Unavailable Reason for Visit * Reason Onset Date Comments Med Refill 01/18/2023 Encounter Details Date Type Department Care Team (Late st Contact Info) Description 01/18/2023 Telephone [facility] MEDICINE [address] [place] [address] Harsh Young MD [address] [place] [address] Med Refill Social History Tobacco Use Types [...] encounter Miscellaneous Notes * Telephone Encounter - Sudha Hart - 01/18/2023 3:25 PM EST Tc from pt requesting med refill on; oxyCODONE-acetaminophen (Percocet) 5-325 MG tablet Pt is also requesting r/s 02/24/2022 appt, pt has another appt this day for back injection at 1PM documented in this encounter Plan of Treatment Upcoming Encounters Date Type Department Care Team (Late st Contact Info) Description 04/03/2024 11:00 AM EST Clinical Support [facility] MED & PEDS [address] [place] [address] Missy Michelle RN [address] [place] [address] documented as of this encounter Visit Diagnoses Not on filedocumented in this encounter Additional Health Concerns Assessment Noted Time PHQ-9 Depression Total Score: 1 01/04/20 23 9:52 AM EST documented as of this encounter Care Teams Work Counselor Relationship Specialty Start Date End Date Harsh Young MD [address] [place] [address] PCP - General Internal Medicine 10/08/19 Eduin Shaw FNP [address] [place] [phone] Nurse Practitioner Family Medicine 01/03/23 documented as of this encounter
--- OUTSIDE RECORDS SUMMARY | 2024-03-29 10:47 | XMS_ITS | Encounter Summary ---
Author Organization [employer] Address [address] [facility] 7[address] [place] [address] Care Team Providers Care Councilperson Name Role Phone Harsh Young MD Primary Care Prov ider Eduin Shaw Unavailable Unavailable Reason for Visit * Reason Comments Med Refill Encounter Details Date Type Department Care Team (Late st Contact Info) Description 12/26/2023 Refill [facility] MEDICINE [address] [place] [address] Harsh Young MD [address] [place] [address] Mixed hyperlipidemia Social History Tobacco Use Types Packs/Day Years [...] 04/03/2024 11:00 AM EST Clinical Support [facility] & PEDS [address] [place] [address] Missy Michelle RN [address] [place] [address] documented as of this encounter Visit Diagnoses Diagnosis Mixed hyperlipidemia documented in this encounter Additional Health Concerns Assessment Noted Time PHQ-9 Depression Total Score: 5 07/06/19 24 2:43 PM EDT documented as of this encounter Care Teams Councilperson Relationship Specialty Start Date End Date Harsh Young MD [address] [place] [address] PCP - General Internal Medicine 10/08/19 Eduin Shaw FNP [address] [place] [address] Nurse Practitioner Family Medicine 01/03/23 documented as of this encounter
--- OUTSIDE RECORDS SUMMARY | 2024-03-29 10:47 | XMS_ITS | Encounter Summary ---
Author Organization [employer] Address [address] [facility] 7 [place] [address] Care Team Providers Care Route Sales Driver Name Role Phone Harsh Young MD Primary Care Prov ider Eduin Shaw Unavailable Unavailable Reason for Visit * Reason Onset Date Comments Request For Order(s) 06/01/2023 Encounter Details Date Type Department Care Team ([facility] Contact Info) Description 06/01/2023 Telephone [facility] MED & PEDS [address] [place], [place] [phone] Harsh Young MD [address] [place], [place] [phone] Request For Order(s) Social History Tobacco Use Types Packs/Day Years Used Date Smoking Tobacco: Former Cigarettes 0.5 10 2 000 - 2010 Passive Smoke Exposure: Never Smokeless Tobacco: Never Alcohol Use Standard Drinks/Week Comments Yes 4 (1 standard drink = 0.6 oz pur e alcohol) Depression Answer Date Recorded Patient Health Questionnaire-9 Score 5 05/08/2023 Patient Health Questionnaire-9 Score 5 05/08/2023 Last PHQ-9: Questionnaire Data Not on file 0 05/08/2023 Housing Stability Answer Date Recorded What is [...] Date Recorded Patient Health Questionnaire-2 Score 1 05/08/2023 Sex and Gender Information Value Date Recorded Sex Assigned at Male 12/13/2021 10:18 AM EDT Legal Sex Male 10:18 AM EDT Gender Identity Male 12/13/2021 10:18 AM EDT Sexual Orientation Straight 12/13/2021 10 :18 AM EDT documented as of this encounter Miscellaneous Notes * Telephone Encounter - Wing Lion RN - 06/01/2023 11:14 AM EDT Tc to pt to state that urine lab is still active. Spoke to [facility] person who does lab and confirmed ptcan come in to get active urine test done. Passed message into pt who verbalized understanding and agreement with plan. States he will get lab done tomorrow. * Telephone Encounter - Rhonda Munguia - 06/01/2023 10:41 AM EDT Tc from pt requesting a urine culture to be sent to [facility] labs. States they do not have order on file. Any questions, please contact pt at [phone] documented in this encounter Plan of Treatment Upcoming Encounters Date Type Department Care Team ([facility] st Contact Info) Description 04/03/2024 11:00 AM EST Clinical Support [facility] MED & PEDS [address] [place] [address] Missy Michelle, RN [address] [place] [address] documented as of this encounter Visit Diagnoses Diagnosis Chronic bilateral low back pain with bilateral sciatica documented in this encounter Additional Health Concerns Assessment Noted Time PHQ-9 Depression Total Score: 5 05/08/19 24 9:56 AM EDT documented as of this encounter Care Teams Route Sales Driver Relationship Specialty Start Date End Date Harsh Young MD [address] [place] [address] PCP - General Internal Medicine 10/08/19 Eduin Shaw FNP [address] [place] [address] Nurse Practitioner Family Medicine 01/03/23 documented as of this encounter
[2024-03-30 03:30] LABS: Syphilis Screen Nonreactive (Nonreactive)
[2024-03-30 03:58] LABS: HIV AB/AG Nonreactive (Nonreactive); HIV Num 1 0.06 S/CO (0.00-0.99); ~HepC Num1 11.04 S/CO (0.00-0.79); ~Hepatitis C Antibody Reactive (Nonreactive)
[2024-04-02 13:34] LABS: HCV Log PCR <1.18 NOT DETECTED Log IU/mL (NOT DETECTED); HepC Viral Load <15 NOT DETECTED IU/mL (NOT DETECTED)
== END 2024-03-29 10:03 | disposition home or self-care (01) ==
LOC: HO.CHCLDS 10:02
PROVIDERS: Visit Provider Internal Medicine
DX: Z20.2 Contact with and (suspected) exposure to infections with a predominantly sexual mode of transmission (principal)
CPT/HCPCS: 36415; 86780; 86803; 87389; 87522

== ENCOUNTER 2024-07-10 17:46 | Outpatient (REF) | payer OTHER, SELFPAY ==
[2024-07-16 11:08] LABS: Benzoylecgonine 200
== END 2024-07-10 17:47 | disposition home or self-care (01) ==
LOC: HO.CHCLNP 17:46
PROVIDERS: Visit Provider Internal Medicine
DX: M54.42 Lumbago with sciatica, left side (principal); M54.41 Lumbago with sciatica, right side; G89.29 Other chronic pain
CPT/HCPCS: 36415; 80353

== ENCOUNTER 2024-07-30 09:35 | Outpatient (REF) | payer OTHER, SELFPAY ==
--- OUTSIDE RECORDS SUMMARY | 2024-07-30 10:25 | XMS_ITS | Encounter Summary ---
Author Organization [employer] Address [address] [facility] [address] [place] [address] Care Team Providers Care Paper Bag Press Operator Name Role Phone Harsh Young MD Primary Care Prov ider Eduin Shaw Unavailable Unavailable Reason for Visit * Reason Onset Date Comments Med Refill 06/13/2024 Encounter Details Date Type Department Care Team (Late st Contact Info) Description 06/13/2024 Telephone [facility] MEDICINE [address] [place] [address] Harsh Young MD [address] [place] [address] Med Refill Social History Tobacco Use Types [...] housing situation today? I have kristy mesa 06/14/[address] you li ve. Do you have problems with any of the following? None of the above 06/14/2024 Food Insecurity Answer Date Recorded Within the past 12 months, y ou worried that your food would run out before you got money to buy more: Never True 06/14/2024 Within the past 12 months,th e food you bought just didn't last and you didn't have enough money to get more: Never True 03/2024 Transportation Answer Date Recorded In the past 12 months, has l ack of transportation kept you from medical appts, meetings, work or from getting things needed for daily living? No 06/14/2024 Utilities Answer Date Recorded In the past 12 months, has t he electric, gas, oil or water company threatened to shut off services in your home? No 06/14/2024 Depression Answer Date Recorded Patient Health Questionnaire-2 Score 1 07/06/2023 Internet Access Answer Date Recorded Internet Access Q1 Yes 06/14/2024 Internet Access Q2 Not on file 06/14/2024 Sex and Gender Information Value Date Recorded Sex Assigned at Male 12/13/2021 10:18 AM EDT Legal Sex Male 10:18 AM EDT Gender Identity Male 12/13/2021 10:18 AM EDT Sexual Orientation Straight 12/13/2021 10 :18 AM EDT documented as of this encounter Miscellaneous Notes * Telephone Encounter - Carson Moeller - 06/13/2024 2:56 PM EDT TC from pt requesting medication refill. Medications needing refill : oxyCODONE-acetaminophen (Percocet) 5-325 MG tablet To be sent to: [facility]/pharmacy #[id number] documented in this encounter Plan of Treatment Upcoming Encounters Date Type Department Care Team ([facility] st Contact Info) Description 09/10/2024 9:30 AM EDT Clinical Support [facility] MED & PEDS [address] [place] [address] Missy Michelle RN [address] [place] [address] 09/23/2024 11:30 AM EDT Telemedicine [facility] & P[facility] [address] [place] [address] Harsh Young MD [address] [place] [address] documented as of this encounter Visit Diagnoses Not on filedocumented in this encounter Additional Health Concerns Assessment Noted Time PHQ-9 Depression Total Score: 5 07/06/19 24 2:43 PM EDT documented as of this encounter Care Teams Paper Bag Press Operator Relationship Specialty Start Date End Date Harsh Young MD [address] [place] [address] PCP - General Internal Medicine 10/08/19 Eduin Shaw FNP [address] [place] [address] Nurse Practitioner Family Medicine 01/03/23 documented as of this encounter
[2024-07-30 14:51] LABS: Alanine Aminotransferase 81 U/L (0-40); Alkaline Phosphatase 59 U/L (39-117); Anion Gap 13 (12-20); Aspartate Amino Transferase 88 U/L (5-37); Bilirubin Total 0.4 mg/dL (0.0-1.0); Blood Urea Nitrogen 33 mg/dL (9-16); Calcium 9.1 mg/dL (8.4-10.2); Carbon Dioxide 27 mmol/L (22-29); Chloride 106 mmol/L (96-108); Cholesterol 151 mg/dL (<200); Estimated Average Glucose 143 mg/dL; Estimated Glomerular Filt Rate > 60; Glucose Random 110 mg/dL (60-115); HDL Cholesterol 37 mg/dL (>40); Hemoglobin A1c % 6.6 % (<6.0); Sodium 142 mmol/L (135-145); Triglycerides 417 mg/dL (<150)
== END 2024-07-30 09:36 | disposition home or self-care (01) ==
LOC: HO.CHCLDS 09:35
PROVIDERS: Visit Provider Internal Medicine
DX: E11.42 Type 2 diabetes mellitus with diabetic polyneuropathy (principal); Z79.4 Long term (current) use of insulin
CPT/HCPCS: 36415; 80053; 80061; 83036; 84443

== ENCOUNTER 2024-08-02 14:48 | Outpatient (REF) | payer OTHER, SELFPAY ==
--- OUTSIDE RECORDS SUMMARY | 2024-08-02 14:53 | XMS_ITS | Encounter Summary ---
Author Organization [employer] Address [address] [facility] [address] [place] [address] Care Team Providers Care Supervisor Show Operations Name Role Phone Harsh Young MD Primary Care Prov ider Eduin Shaw Unavailable Unavailable Reason for Visit * Reason Onset Date Comments Med Refill 06/13/2024 Encounter Details Date Type Department Care Team (Late st Contact Info) Description 06/13/2024 Telephone [facility] MEDICINE [address] [place] [address] Harsh Young MD [address] [place] [address] Med Refill Social History Tobacco Use Types [...] 5-325 MG tablet To be sent to: [facility]/pharmacy #[id number] documented in this encounter Plan of Treatment Upcoming Encounters Date Type Department Care Team ([facility] st Contact Info) Description 09/10/2024 9:30 AM EDT Clinical Support [facility] MED & PEDS [address] [place] [address] Missy Michelle RN [address] [place] [address] 09/23/2024 11:30 AM EDT Telemedicine [facility] MED & PEDS [address] [place] [address] Harsh Yonug MD [address] [place] [address] documented as of this encounter Visit Diagnoses Not on filedocumented in this encounter Additional Health Concerns Assessment Noted Time PHQ-9 Depression Total Score: 5 07/06/19 24 2:43 PM EDT documented as of this encounter Care Teams Supervisor Show Operations Relationship Specialty Start Date End Date Harsh Young MD [address] [place] [address] PCP - General Internal Medicine 10/08/19 Eduin Shaw FNP [address] [place] [address] Nurse Practitioner Family Medicine 01/03/23 documented as of this encounter
[2024-08-02 15:44] LABS: Creatinine Urine 63.23 mg/dL; Microalbum/Creatinine Ratio Ur 101.2 ug/mg cr (<30)
== END 2024-08-02 14:49 | disposition home or self-care (01) ==
LOC: HO.LNP 14:48
PROVIDERS: Visit Provider Internal Medicine
DX: E11.42 Type 2 diabetes mellitus with diabetic polyneuropathy (principal); Z79.4 Long term (current) use of insulin
CPT/HCPCS: 82043; 82570